=== PATIENT | male | born 1925 | race Caucasian/White ===

== ENCOUNTER → 2017-03-20 | Outpatient (CLI) | payer OTHER ==
[~2017-03-20] MED LIST: ACET-1256 PO; ADVIN10/60 INH; ALBUAER INH; BRIM0.2S OPB; CHOL1000 PO; CMD25 PO; DOXA2TAB PO; FURO20TA PO; PANT40TA PO; QUIN20TA30 PO; SIMV20TA5 PO; WARF2.5T8 PO; WARF5TAB90 PO
[2017-03-20 16:05] LABS: FERRITIN 376.4 ng/ml (8.0-388.0)
[2017-03-20 16:16] LABS: HEMATOCRIT 32.2 % (42-52); MEAN CELL VOLUME 96.1 fL (80-100); MEAN CORPUSCULAR HEMOGLOBIN 29.6 pg (25-34); MEAN CORPUSCULAR HGB CONC 30.7 g/dl (32-36); PLATELET COUNT 80 K/uL (130-400); PLT ESTIMATE DECREASED; RED BLOOD COUNT 3.35 M/uL (4.7-6.1); WHITE BLOOD COUNT 3.95 K/uL (4.8-10.8)
== END | disposition home or self-care (01) ==
LOC: C.LAB1850 14:25
PROVIDERS: ATTEND Internal Medicine Nephrology
DX: D64.9 Anemia, unspecified (principal)

== ENCOUNTER 2017-09-24 05:49 | Inpatient (IN) | payer OTHER ==
[~2017-09-24] VITALS: Ht 165.1 cm; Wt 73.0 kg
[~2017-09-24 05:49] MED LIST changes: -ADVIN10/60 INH; -WARF2.5T8 PO
[2017-09-24 10:28] VITALS: BP 144/77; PULSE 84; TEMP 37; O2SAT 96
[2017-09-24 10:40] VITALS: O2SAT 96; Ht 165.1 cm; Wt 73.0 kg
[2017-09-24] MEDS ORDERED: CONSULT PHARMACY STA (10:56)
[2017-09-24] MEDS ORDERED: ALUMINUM/MAGNESIUM/SIMETH (MAALOX MAX) 30 ML UDC PO PRN (11:00)
[2017-09-24] MEDS ORDERED: ALBUTEROL HFA 8 GM INHALER INH PRN (11:00)
[2017-09-24] MEDS ORDERED: MAGNESIUM HYDROXIDE SUSP 30 ML UDC PO PRN (11:00)
[2017-09-24] MEDS ORDERED: ACETAMINOPHEN 325 MG TAB PO PRN (11:00)
[2017-09-24] MEDS ORDERED: ONDANSETRON INJ 2 MG/ML 2 ML VIAL IV PRN (11:00)
[2017-09-24] MEDS ORDERED: POLYETHYLENE (MIRALAX) 17 GM PACK PO PRN (11:00)
[2017-09-24] MEDS ORDERED: ZOLPIDEM TARTRATE 5 MG TAB PO PRN (11:00)
[2017-09-24] MEDS ORDERED: WARF2.5T8 PO ×2 (11:08)
[2017-09-24] MEDS ORDERED: ADVIN10/60 INH ×2 (11:13)
--- NOTE | 2017-09-24 11:38 | History and Physical ---
History & Physical Date of Service Sep 24, 2017. History & Physical chf exac, cellulitis, [id number]
[2017-09-24] MEDS: PATIENT'S HEIGHT AND/OR WEIGHT NEEDED SCH ×2 (11:50→11:52)
[2017-09-24 11:51] LABS: PROTHROMBIN TIME (PATIENT) 31.2 SECONDS (9.0-12.0)
[2017-09-24] MEDS ORDERED: VANCOMYCIN CONSULT ACTIVE PRN (12:00)
[2017-09-24] MEDS ORDERED: VANCOMYCIN INJ 1,500 MG in SODIUM CHLORIDE 0.9% 500ML 500 ML IV ONE (12:00)
[2017-09-24 12:10] LABS: CKMB/CK RATIO 4.3 (0-3.0); MAGNESIUM 2.2 mg/dl (1.8-2.4); THYROID STIMULATING HORMONE 2.09 uIu/ml (0.300-4.500)
[2017-09-24 12:49] VITALS: BP 135/72; PULSE 86; TEMP 36.6; O2SAT 96
--- NOTE | 2017-09-24 12:53 | HISTORY & PHYSICAL EXAMINATION ---
DATE OF ADMISSION: 09/24/2017 This is a level 3 admission, 40 minutes. CHIEF COMPLAINT: Worsening dyspnea on exertion and right lower wound seeping ulcerative colitis. HISTORY OF PRESENT ILLNESS: The patient is an 89-year-old white male with a significant past medical history of DVT, GI bleeding, hypertension, aortic valve replacement, MRSA carrier, [place] filter placement, chronic kidney disease stage III, and CHF conditions, transferred from [facility] to this hospital because of the above chief complaint. The patient reported a history of CHF and adjusting Lasix at home mostly as 20 mg p.o. daily, but advised can get additional dose if weight gain. Feeling has worsening dyspnea on exertion, especially feeling more frequent dyspnea on exertion. He is still able to up and walk to mailbox and get mail, able to walk with dog, no obvious wheezing. Occasional cough with white or yellow sputum. Denied orthopnea. Denied wake up in the middle of the night because of gasping air, still able to sleep in 1 pillow. At the same time, the patient reports right lower extremity chronic wounds for years. He has been followed up with home health care of wound care. However, right anterior reaves has a dime-sized open wound that is seeping and drainage. Right lower extremity has obvious swelling, distended and tight associated with mild warmer than left side. Yesterday, per , bilateral lower extremities were more swelling than today. In the [place] [facility], Doppler ultrasound was done and has ruled out DVT. The patient has been taking Coumadin for a history of PE. He was seen by Dr. Cobb oncologist in this hospital yesterday fro low white blood cell count and anemia, and has bone marrow biopsy done. PT/INR was checked yesterday when seen by Dr. Cobb. When I interviewed with him, he was awake, alert, orientated, conversational, follows all commands and confirmed me the above information. Denied fever or chill. Denied wheezing. Denied chest pain or palpitation. Denied nausea, vomiting, abdominal pain, diarrhea or constipation. Denied dysuria, urgency and frequencies. There was no clubbing or cyanosis in the lower extremities. Denied facial droop, slurry speeches or local weakness. ALLERGIES: 1. AMINOGLYCOSIDE. 2. BACITRACIN. 3. ERYTHROMYCIN. 4. NEOMYCIN. 5. PENICILLIN. 6. POLYMYXIN B. 7. SULFA. 8. VERAPAMIL. PAST MEDICAL HISTORY: Include DVT, PE, [place] filter, GI bleeding, hypertension, CHF, aortic valve replacement with pig valve, positive MRSA carrier, bilateral knee replacement, hernia repair, CKD stage III, dyslipidemia, GERD, and BPH. SOCIAL HISTORY: Social alcohol drinking. History of smoking, quit in 2006. Denied illicit drug abuse. FAMILY HISTORY: Noncontributory. MEDICATIONS: Taking at home, which include Tylenol 500 mg p.o. q. 4 hours p.r.n. for the pain, albuterol inhaler as needed, Combigan 1 drop OPB, q. 2 days, vitamin D3 one tab p.o. q.a.m., Cardura 2 mg p.o. at bedtime, Advair 100/50 one puff b.i.d., Lasix 20 mg p.o. q.a.m., Protonix 40 mg p.o. q.a.m., quinapril 20 mg p.o. q. daily, Zocor 20 mg p.o. q.p.m., and warfarin 2.5 mg Friday and 5 mg 3 times per week. PHYSICAL EXAMINATION: VITAL SIGNS: Temperature is 37, pulse 84, respiratory rate 18, blood pressure 144/77, and pulse ox was 96% in room air. GENERAL: The patient is a white male, awake, alert and orientated, conversational, follows all commands, and pleasant. No acute distress. HEAD: Normocephalic. EYES: Pupils equal, round and respond to light. EARS: Normal. NOSE: Normal. NECK: Supple. Thyroid, no enlargement. Trachea midline. HEART: Regular rhythm. S1 and S2. LUNGS: Decreased breathing sounds. There were mild fine crackles in the base of right side. No wheezing or rhonchi. ABDOMEN: Soft and nontender. Bowel sound was positive. GENITOURINARY AND RECTAL: Deferred. EXTREMITIES: Bilateral CVA was nontender. Bilateral lower extremities: Left lower extremity 1+ edema. Right lower extremity 2+ edema. There was no clubbing and no cyanosis. NEUROLOGIC EVALUATION: Cranial nerve II through XII was intact. There were no local deficits. SKIN: In the left lower extremity, he has skin scratches because of itching. Right lower extremity has dime-sized chronic wounds and associated surrounding chronic pigmentation. The dime-sized open wound has some drainages, not obvious yellow. The whole right lower extremity is mild warmer than left side and swelling like I mentioned. LABORATORY STUDIES: Yesterday was done. WBC 3.3, hemoglobin 9.3, and platelets 95. PT/INR was 23/2.2 yesterday. Labs in [place] today, blood glucose 114, BUN 37, and creatinine 2.2. Total protein 6.3 and albumin 3.3. Calcium 8.9. Total bilirubin 0.8. Sodium 145, potassium 4.5, chloride 112, and bicarbonate 23. AST 25 and ALT 27. Magnesium 2.2. BNP 80,782. Troponin 0.036, which was in normal range in the outside hospital. PT/INR was 33/3.29. WBC 3, hemoglobin 8.8, and platelets 97. Right lower extremity venous Doppler studies was negative for DVT. EKG in the outside hospital shows atrial fibrillations with heart rate around 80. ASSESSMENT AND PLAN: This 89-year-old white male was transferred from [facility] with the conditions see below. 1. Congestive heart failure exacerbation with a history of aortic valve replacement with pig valve. 2. Right lower extremity cellulitis and local open wound. 3. History of chronic kidney disease, stage III. 4. History of deep venous thrombosis, [place] filter and pulmonary embolism on Coumadin. 5. Hypertension. 6. History of [place] filter placement. 7. History of benign prostatic hypertrophy. 8. History of gastroesophageal reflux disease. 9. Dyslipidemia. The plan will be CHF protocol, fluid restriction, I&O, daily weight, increase Lasix to 40 mg IV q. daily, check BUN and creatinine levels and electrolytes. The patient's cardiology is Dr. Paul and nephrology is Dr. Sorensen. We will request them to see. Continue TYRONE inhibitor and beta alie for now. For right lower extremity cellulitis and local open wound. The patient is a MRSA carrier. He got 1 dose Vanco in [facility]. We will continue vancomycin IV per pharmacy dose. Has sent local open wound culture and blood culture. We will follow up the wound culture results and blood culture results. By the way, I heard [place] and they sent the wound culture and blood culture as well. We can follow up of the results. The patient has DVT, PE. [place] filter. Today's INR in [place] was 3.29. I will hold the Coumadin today. Follow up INR tomorrow. History of atrial fibrillation, rate controlled. We will continue current medication. Chronic anemia. We will follow up H&H. The patient was recently seen by Dr. Cobb and had a marrow biopsy done. We need to follow up the results and consult Dr. Cobb if needed. Bilateral lower extremity itching and scratching. I will order hydrocortisone cream. Local open wound. We will have wound care consult. For the DVT prophylaxis, we will not order or heparin product because platelet level is low and he is thrombocytopenic currently. The patient is on Coumadin as well. Discussed with the patient about the code status. He is okay to CPR, but no intubation, but his living will is DNR. Discussed with the patient and and son at the bedside and answered all their questions. AKIL
[2017-09-24 12:57] LABS: MEAN CELL VOLUME 97.6 fL (80-100); MEAN CORPUSCULAR HEMOGLOBIN 30.2 pg (25-34); MEAN CORPUSCULAR HGB CONC 30.9 g/dl (32-36); MEAN PLATELET VOLUME 10.6 fL (7.4-10.4); PLATELET COUNT 114 K/uL (130-400); RED BLOOD COUNT 3.28 M/uL (4.7-6.1); WHITE BLOOD COUNT 3.46 K/uL (4.8-10.8)
[2017-09-24 12:59] LABS: BUN/CREATININE RATIO 16.3 (10-20); CALCIUM 9.5 mg/dl (8.5-10.1); CREATININE 2.04 mg/dl (0.60-1.40); POTASSIUM 4.3 mmol/L (3.5-5.1)
[2017-09-24] MEDS ORDERED: PNEUMOCOCCAL POLYSACCHARIDES 25 MCG/0.5 ML VIAL/SYR IM. ONE (13:00)
[2017-09-24] MEDS ORDERED: PNEUMOCOCCAL ADMINISTRATION CHARGE ONE (13:00)
--- NOTE | 2017-09-24 14:02 | DIAGNOSTIC IMAGING REPORT ---
CHEST 2 VIEWS ROUTINE CLINICAL HISTORY: CHF dyspnea COMPARISON STUDY: 07/03/2016 FINDINGS: Mild stable cardiomegaly. Median sternotomy. Dense calcification mitral annulus. Lungs are clear. Diaphragms smooth. IMPRESSION: No acute process. Mild stable cardiomegaly. The above report was generated using voice recognition software. It may contain grammatical, syntax or spelling errors. Electronically signed by: Luiz Medel M.D. 09/24/2017 2:00 PM Dictated Date/Time: 09/24/2017 1:59 PM
--- NOTE | 2017-09-24 14:13 | Pharmacy Progress Note ---
Pharmacy Antibiotic Consult Date of Service: Sep 24, 2017. Pharmacy Dosing Scope Pharmacy is consulted to initiate Vancomycin IV dosing therapy, order appropriate labs and adjust drug dose/frequency. Subjective The patient is a 89 year old male admitted on Sep 24, 2017 at 11:06. Objective Height (Feet): 5 Height (Inches): 5.00 Weight (Kilograms): 69.000 Lab Results (24hrs): Test 09/24/17 11:15 White Blood Count 3.46 K/uL (4.8-10.8) Red Blood Count 3.28 M/uL (4.7-6.1) Hemoglobin 9.9 g/dL (14.0-18.0) Hematocrit 32.0 % (42-52) Mean Corpuscular Volume 97.6 fL (80-100) Mean Corpuscular Hemoglobin 30.2 pg (25-34) Mean Corpuscular Hemoglobin Concent 30.9 g/dl (32-36) RDW Standard Deviation 58.5 fL (36.4-46.3) RDW Coefficient of Variation 16.4 % (11.5-14.5) Platelet Count 114 K/uL (130-400) Mean Platelet Volume 10.6 fL (7.4-10.4) Prothrombin Time 31.2 SECONDS (9.0-12.0) Prothromb Time International Ratio 3.0 (0.9-1.1) Sodium Level 139 mmol/L (136-145) Potassium Level 4.3 mmol/L (3.5-5.1) Chloride Level 108 mmol/L (98-107) Carbon Dioxide Level 27 mmol/L (21-32) Anion Gap 4.0 mmol/L (3-11) Blood Urea Nitrogen 33 mg/dl (7-18) Creatinine 2.04 mg/dl (0.60-1.40) Est Creatinine Clear Calc Drug Dose 21.4 ml/min Estimated GFR () 32.5 Estimated GFR (Non- 28.1 BUN/Creatinine Ratio 16.3 (10-20) Random Glucose 85 mg/dl (70-99) Calcium Level 9.5 mg/dl (8.5-10.1) Magnesium Level 2.2 mg/dl (1.8-2.4) Total Creatine Kinase 90 U/L (39-308) Creatine Kinase MB 3.9 ng/ml (0.5-3.6) Creatine Kinase MB Ratio 4.3 (0-3.0) Troponin I 0.043 ng/ml (0-0.045) Pro-B-Type Natriuretic Peptide 7646 pg/ml (0-1800) Thyroid Stimulating Hormone (TSH) 2.090 uIu/ml (0.300-4.500) Assessment & Plan Assessment Pt transferred from [facility] for worsening dyspnea on exertion and for seeping, open leg wound. Pt reports that the leg wound is chronic and that he has had it for years. He has a history of CKD stage III, DVT, CHF, GI bleed and is reportedly a MRSA carrier. Wound cultures pending. Vancomycin * Per Radha at [facility] pharmacy, pt received vanco 1.5 gm x 1 @ 0530 this morning prior being transferred to [place]. * A loading dose of vanco 1.5gm iv x 1 was ordered for this admission before this information was obtained. I spoke with nursing to stop the infusion of vancomycin. It is estimated that he received about 1/2 of the dose. * Due to a Scr of 2 and estimated CrCl of 21ml/min, he will be dosed per level at this time. * Goal trough level for cellulitis with possible MRSA involvement 15-20mcg/mL Plan Vancomycin * Pt received an estimated total dose of 2250mg of vancomycin today (~32mg/kg) * A random vanc level is ordered for tomorrow am with labs. Pharmacy will continue to follow and will adjust dose/frequency as necessary. Thank you
--- NOTE | 2017-09-24 14:31 | Nephrology Consultation ---
Nephrology Consultation Date & Providers Date of Consultation: Sep 24, 2017. Primary Care Provider: Naveed Kelsey M.D. Referring Provider: Reason for Consultation Evaluation and management for chronic kidney disease and volume overload. History of Present Illness Mr. Vann is a 89-year-old gentlemen with past medical history significant for stage 3 chronic kidney disease, hypertension, chronic atrial fibrillation CHF with diastolic dysfunction and prior history of aortic valve replacement admitted to the hospital with CHF exacerbation. Nephrology consult was requested to manage the volume status and diuretics. The medical records including labs and imaging are reviewed in detail during patient's visit. Patient's and son was at bedside during visit. Mr. Vann went to [facility] ER yesterday after he noticed worsening lower extremity edema and superficial skin ulceration in his right lower extremity. He was found to have significant volume overload, with CHF exacerbation and transferred to [facility] as a direct admit as there was no bed available. Labs and imaging from ER visit is not available to review at this point. Mr. Vann has stage 3 chronic kidney disease baseline creatinine has been variable from 1.7-2.3, EGFR around 35-40. He has low grade proteinuria and microscopic hematuria, previously,urine cytology was negative. Refused cystoscopy before. He has been on Lasix 20 milligram daily for chronic lower extremity edema with underlying diastolic dysfunction however reports that he has not been taking Lasix regularly and was taking only as needed. He was having progressive increase in lower extremity edema and yesterday he noticed skin break in right reaves prior to the visit to the emergency room. He also had a fall and hematoma in the same lower extremity several weeks ago, requiring blood transfusion thrombectomy. Has history of chronic atrial fibrillation has been on anticoagulation with warfarin. Has CHF with diastolic dysfunction, prior echo in February 2017 showed EF 60-65 % with grade 1 diastolic dysfunction. Has chronic anemia, previously evaluated by Oncology, had bone marrow biopsy done which was unremarkable according to the family, report not available. Had iron deficiency and received IV Venofer 1 gram recently. Hemoglobin continues to be below 10 He reports improvement in lower extremity edema compared to yesterday after he received IV Lasix. Has been having bouts of cough but denies any fever or chills. Denies any shortness of breath. Has been voiding normally. Denies any chest pain. Allergies Coded Allergies: Aminoglycosides (Verified Allergy, Unknown, SWELLING,REDNESS, 03/11/17) Bacitracin (Verified Allergy, Unknown, SWELLING,REDNESS, 03/11/17) Neomycin (Verified Allergy, Unknown, SWELLING,REDNESS, 03/11/17) Penicillins (Verified Allergy, Unknown, HIVES, 03/11/17) Polymyxin B (Verified Allergy, Unknown, SWELLING,REDNESS, 03/11/17) Erythromycin (Verified Adverse Reaction, Unknown, DRY MOUTH, 03/11/17) Sulfa Drugs (Verified Adverse Reaction, Unknown, "CRYSTALLIZED IN MY URINE ", 03/11/17) Verapamil (Verified Adverse Reaction, Unknown, DELUSIONS, HALLUCINATIONS, 03/11/17) Inpatient Medications Current Inpatient Medications Medications (Trade) Dose Ordered Sig/Juan Route Start Time Stop Time Status Last Admin Dose Admin Acetaminophen (Tylenol Tab) 650 mg Q4H PRN PO 09/24/17 11:00 10/24/17 10:59 Al Hydrox/Mg Hydrox/Simethicone (Maalox Max Susp) 15 ml Q4H PRN PO 09/24/17 11:00 10/24/17 10:59 Magnesium Hydroxide (Milk Of Magnesia Susp) 30 ml Q12H PRN PO 09/24/17 11:00 10/24/17 10:59 Zolpidem Tartrate (Ambien Tab) 5 mg HSZ PRN PO 09/24/17 11:00 10/24/17 10:59 Ondansetron HCl (Zofran Inj) 4 mg Q6H PRN IV 09/24/17 11:00 10/24/17 10:59 Polyethylene (Miralax Powder Packet) 17 gm DAILY PRN PO 09/24/17 11:00 10/24/17 10:59 Furosemide 40 mg/ Syringe 4 ml @ 4 mls/min DAILY@09 IV 09/25/17 09:00 10/25/17 08:59 Albuterol (Ventolin Hfa Inhaler) 2 puffs BID PRN INH 09/24/17 11:00 10/24/17 10:59 Cholecalciferol (Vitamin D Tab) 1,000 inter.unit QAM PO 09/25/17 09:00 10/25/17 08:59 Doxazosin Mesylate (Cardura Tab) 2 mg HS PO 09/24/17 21:00 10/24/17 20:59 Pantoprazole Sodium (Protonix Tab) 40 mg QAM PO 09/25/17 09:00 10/25/17 08:59 Simvastatin (Zocor Tab) 20 mg QPM PO 09/24/17 21:00 10/24/17 20:59 Warfarin Sodium (Coumadin Tab) 5 mg UD PO 09/24/17 11:00 10/24/17 10:59 UNV Miscellaneous Information (Order Awaiting Action) 1 ea QS N/A 09/24/17 16:00 10/24/17 15:59 Enalapril Maleate (Vasotec Tab) 20 mg DAILY PO 09/25/17 09:00 10/25/17 08:59 Vancomycin HCl (Consult) 1 ea UD PRN N/A 09/24/17 12:00 10/24/17 11:59 Vancomycin HCl 1500 mg/Sodium Chloride 530 ml @ 200 mls/hr ONE ONCE IV 09/24/17 12:00 09/24/17 14:38 09/24/17 12:20 200 MLS/HR Pneumococcal Polysaccharide Vaccine (Pneumovax-23 Inj) 25 mcg ONCE ONCE IM. 09/24/17 12:30 09/24/17 12:31 UNV Social History Smoking Status: Former Smoker Marital Status: Housing Status: lives with family Occupation: retired Review of Systems A complete review of systems was performed. Pertinent positives are noted above. All other systems are negative. Physical Exam Date Time Temp Pulse Resp B/P (MAP) Pulse Ox O2 Delivery O2 Flow Rate FiO2 09/24/17 10:40 96 Room Air 09/24/17 10:28 37.0 84 18 144/77 (99) 96 Room Air GENERAL: Elderly male AAA x 3, pleasant, not in any distress. HEENT: Atraumatic, normocephalic. NECK: Supple, no JVD, no carotid bruit appreciated. ENT: No sinus tenderness MOUTH and THROAT: Moist oral mucosa, no oral ulcer or pharyngeal erythema RESPIRATORY: Has occasional wheezes and bilateral crackles CARDIOVASCULAR: S1, S2 normal, rhythm irregular. ABDOMEN: Soft, nontender, positive bowel sound. MUSCULOSKELETAL: No CVA tenderness. No joint swelling, erythema or tenderness. Normal range of motion. SKIN: No skin rash EXTREMITY: 1+ bilateral lower extremity edema, right lower extremity with superficial ulcer, in dressing NEURO: No gross focal neurological deficit, speech fluent. PSYCHIATRY: Normal mood and judgment Laboratory Results Last 24 Hours Test 09/24/17 11:15 09/24/17 12:18 Prothrombin Time 31.2 SECONDS Prothromb Time International Ratio 3.0 Magnesium Level 2.2 mg/dl Total Creatine Kinase 90 U/L Creatine Kinase MB 3.9 ng/ml Creatine Kinase MB Ratio 4.3 Troponin I 0.043 ng/ml Pro-B-Type Natriuretic Peptide 7646 pg/ml Thyroid Stimulating Hormone (TSH) 2.090 uIu/ml Impression 89-year-old gentlemen with history chronic atrial fibrillation, CHF with diastolic dysfunction, hypertension, stage 3 chronic kidney disease admitted with CHF exacerbation. 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 Has low grade proteinuria and microscopic hematuria. Has been on Lasix 20 milligram at home however has been taking only as needed. Started on IV Lasix with improvement in lower extremity edema however continues to be volume overloaded. Has history of anemia, prior evaluation by Hematology with bone marrow was unremarkable. Recent IV Venofer IV. Hemoglobin has been staying below 9. Recommendations --suggest starting on Lasix 40 IV twice a day as patient still significantly volume overloaded. Aim for net negative 0.5 to 1 L/d --will need close monitoring of renal function, check magnesium and phosphate every 48 hours considering being on high dose diuretics --will check CBC and if hemoglobin continues to be low will start on Epogen --continue on low-salt diet --continue on home dose of ARB Thank you for allowing me to participate in your patient's care. It was a pleasure to see Mr. Vann
[2017-09-24] MEDS ORDERED: EPOETIN ALFA 10,000 UNITS/ML VIAL SQ ONE (14:45)
[2017-09-24] MEDS: COMBIGAN: ORDER AWAITING ACTION SCH ×2 (15:36→23:10)
[2017-09-24 15:48] VITALS: BP 135/66; PULSE 80; TEMP 37; O2SAT 94
[2017-09-24 19:58] VITALS: BP 153/67; PULSE 81; TEMP 37; O2SAT 95
[2017-09-24] MEDS: DOXAZosin MESYLATE TAB 2 MG TAB PO SCH (20:09)
[2017-09-24] MEDS: SIMVASTATIN 20 MG TAB PO SCH (20:09)
[2017-09-24] MEDS: HYDROCORTISONE 1% CR 30 GM TUBE EXT SCH (20:09)
[2017-09-24] MEDS ORDERED: WARFARIN SOD 2.5 MG TAB PO SCH (21:00)
--- NOTE | 2017-09-24 21:25 | CARDIOLOGY CONSULTATION ---
DATE OF CONSULTATION: 09/24/2017 CONSULTATION REQUESTED BY: Dr. Moya. REASON FOR CONSULTATION: Heart failure. HISTORY OF PRESENT ILLNESS: Mr. Vann is an 89-year-old man with a complex past medical history including prior severe aortic stenosis, status post bioprosthetic aortic valve replacement in 2009, known small vessel coronary artery disease, permanent atrial fibrillation, on anticoagulation, prior VTE, hypertension, prior GI bleed and pancytopenia, who was transferred from [facility] in the setting of worsening lower extremity edema and concern for cellulitis. The patient is well known to me from the outpatient setting. I last saw him 1 week ago. At that time, he was endorsing longstanding dyspnea on exertion which was thought secondary to his persistent pancytopenia, being evaluated by Dr. Cobb. He underwent a bone marrow biopsy yesterday, which per report was unremarkable. The patient states that he was in his usual state of health up until 2 days ago when he noted increased swelling in his lower extremities as well as weeping from a chronic wound on his right lower extremity. Denied significant increased redness, fevers, chills or drainage. Due to symptoms, he presented to [facility], was thought to be volume overloaded, started on IV diuretics as well as IV antibiotics and transferred to [facility] due to his specialist care being here. Since diuresis, he states that his lower extremity swelling has improved, dyspnea on exertion is still at baseline. PAST MEDICAL HISTORY: 1. Status post bioprosthetic aortic valve replacement in 2009. 2. Coronary artery disease with prior disease in his mid circumflex and ostial first diagonal on preoperative heart catheterization. 3. Permanent atrial fibrillation. 4. Prior DVT/PE with [place] filter previously placed. 5. Hypertension. 6. Hyperlipidemia. 7. Prior GI bleed with gastric ulcer. 8. Obstructive sleep apnea, on CPAP. 9. Myelodysplastic syndrome/pancytopenia. FAMILY HISTORY: Noncontributory due to the patient's age and comorbidities. SOCIAL HISTORY: He is . He is a retired civil engineering project manager. Occasional social drinker. Denies any tobacco. HOME MEDICATIONS: Include Advair Diskus, allopurinol, diltiazem, doxazosin, furosemide 20 mg daily, Protonix, Proventil, simvastatin 20 and Coumadin. ALLERGIES: AMINOGLYCOSIDES, BACITRACIN, ERYTHROMYCIN, NEOMYCIN, PENICILLINS, POLYMYXIN B, SULFA DRUGS AND VERAPAMIL. REVIEW OF SYSTEMS: Ten-point review of systems completed and otherwise negative unless stated in HPI. PHYSICAL EXAMINATION: VITAL SIGNS: Temperature 36.6, pulse 86, blood pressure 135/72, satting 96% on room air. GENERAL: The patient appears comfortable, mildly dyspneic with extended conversation. HEENT: Sclerae anicteric. Oropharynx is clear. NECK: Supple. He has normal carotid upstrokes. His JVP is slightly elevated at approximately 8-9. LUNGS: He has few scant crackles, left greater than right, with decreased breath sounds at the right base. CARDIAC: He is irregularly irregular but with crisp bioprosthetic aortic valve closure and no other appreciable rubs or gallops. ABDOMEN: Soft, nontender, nondistended, with positive bowel sounds. EXTREMITIES: Warm. He has intact distal pulses including 2+ radial pulses and 2+ DP pulses bilaterally. He has mild distal hyperpigmentation with trace to 1+ lower extremity edema to his mid reaves bilaterally. He has a chronic healed wound to the right anterior/medial aspect of his reaves. There are no active ulcerations or drainage and no significant erythema. DATA: Sodium 139, potassium 4.3, BUN 33, creatinine of 2.0. His ProBNP was elevated at 7646. Initial troponin was negative at 0.43. Hemoglobin stable at 9.9, platelets of 114. Chest x-ray with no acute cardiopulmonary process. Telemetry reviewed, rate controlled atrial fibrillation. IMPRESSION AND PLAN: 1. Acute diastolic heart failure. 2. Chronic kidney disease, stage III-IV. 3. Pancytopenia/myelodysplastic syndrome, stable. 4. Permanent atrial fibrillation, rate controlled. 5. History of bioprosthetic aortic valve replacement. 6. Known coronary artery disease, small vessel disease. 7. Suspected cellulitis. Mr. Vann is here with acute worsening of lower extremity peripheral edema with some lower extremity oozing/weeping and concern for cellulitis. He has been started on IV diuretics and has mild residual pulmonary and peripheral congestion. No other clear triggers for worsening of acute diastolic heart failure, although the patient has not been taking his prior p.o. Lasix in the setting of not liking more frequent urination. Going forward, I agree with continued IV diuresis and will defer diuretic regimen to Dr. Echols in the setting of his chronic kidney disease. Continue current TYRONE. The patient's heart rate with permanent atrial fibrillation is well controlled and agree with holding prior home diltiazem. Otherwise, continue home statin and continue home Coumadin. We will continue to follow while in hospital. Thank you for consultation. AKIL
[2017-09-24] MEDS: FUROSEMIDE INJ 40 MG in SYRINGE 0 ML IV SCH (22:08)
[2017-09-24 23:47] VITALS: BP 129/65; PULSE 89; TEMP 37.6; O2SAT 97
[2017-09-25] VITALS (9 sets, daily range): BP systolic 122–179; BP diastolic 65–88; PULSE 72–97; TEMP 36.4–37.1; O2SAT 94–96
[2017-09-25] MEDS: COMBIGAN: ORDER AWAITING ACTION SCH ×2 (08:00→16:38)
[2017-09-25 08:35] LABS: INR 2.5 (0.9-1.1); PROTHROMBIN TIME (PATIENT) 25.5 SECONDS (9.0-12.0)
[2017-09-25 08:58] LABS: BUN/CREATININE RATIO 17.5 (10-20); CALCIUM 9.4 mg/dl (8.5-10.1); CREATININE 2.34 mg/dl (0.60-1.40); MAGNESIUM 2.2 mg/dl (1.8-2.4); POTASSIUM 4.6 mmol/L (3.5-5.1)
[2017-09-25] MEDS ORDERED: FUROSEMIDE INJ 40 MG in SYRINGE 0 ML IV SCH (09:00)
[2017-09-25 09:03] LABS: CHOLESTEROL/HDL RATIO 1.9
[2017-09-25] MEDS: ENALAPRIL MALEATE 10 MG TAB PO SCH (09:19)
[2017-09-25] MEDS: CHOLECALCIFEROL 1000 INTER.UNIT TAB PO SCH (09:19)
[2017-09-25] MEDS: PANTOprazole SOD 40 MG TAB PO SCH (09:20)
[2017-09-25] MEDS: HYDROCORTISONE 1% CR 30 GM TUBE EXT SCH ×2 (09:20→19:42)
--- NOTE | 2017-09-25 09:25 | Pharmacy Progress Note ---
Pharmacy Abx Dose Short Note Date of Service Sep 25, 2017. Assessment & Plan Assessment 89 year old male receiving vancomycin for treatment of cellulitis. Preliminary wound culture growing staph aureus. The patient's random level this morning after ~ 2250 was 14.4, however creatine has significantly bumped this morning. Therefore I will give a dose now but schedule conservatively, monitoring for changes in renal function and clinical status closely. Day # 2 of antimicrobial therapy. Plan Vancomycin * Random level of 14.4 mcg/mL is therapeutic * Change to 1250 mg IV every 48 hours * Goal trough level : 10 to 15 mcg/mL * Trough or random level ordered as clinically indicated Pharmacy will continue to follow and will adjust dose/frequency as necessary. Thank you.
[2017-09-25] MEDS: FUROSEMIDE INJ 40 MG in SYRINGE 0 ML IV SCH (09:29)
[2017-09-25] MEDS ORDERED: VANCOMYCIN INJ 1,250 MG in SODIUM CHLORIDE 0.9% 250ML 250 ML IV SCH (09:30)
--- NOTE | 2017-09-25 10:28 | Nephrology Progress Note ---
Nephrology Progress Note Date of Service Sep 25, 2017. Chief Complaint Evaluation and management for chronic kidney disease and volume overload. Subjective Mr. Vann was seen and examined in his room this am. Feels tired as he could not sleep at night. Denies SOB, CP. Cr slightly worsened to 2.3. BP stable, net negative, volume status improved significantly. Review of Systems A complete review of systems was performed. Pertinent positives are noted above. All other systems are negative. Vital Signs Last 8 Hrs Date Time Temp Pulse Resp B/P (MAP) Pulse Ox O2 Delivery O2 Flow Rate FiO2 09/25/17 08:19 36.5 85 18 164/65 (98) 94 Room Air 09/25/17 08:00 94 Room Air 09/25/17 04:46 36.9 83 18 139/76 (97) 96 Room Air 09/25/17 04:00 Room Air Last Recorded Weight Weight (Kilograms): 73.600 Physical Exam GENERAL: elderly male, AAA x 3, pleasant, healthy-appearing, not in any distress. NECK: Supple, no JVD. RESPIRATORY: Normal breathing efforts, no accessory muscle use, clear to auscultation bilaterally, no wheezes or rales. CARDIOVASCULAR: S1, S2 normal, rate rhythm regular. EXTREMITY: trace b/l lower extremity edema, dressing over rt reaves ulcer NEURO: speech fluent. PSYCHIATRY: Normal mood and judgment Social History Smoking Status: Former smoker Marital Status: Housing Status: lives with family Occupation: retired Laboratory Results Past 24 Hours 09/24/17 11:15 09/24/17 11:15 09/25/17 08:10 Test 09/24/17 11:15 09/25/17 08:10 Red Blood Count 3.28 M/uL (4.7-6.1) Mean Corpuscular Volume 97.6 fL (80-100) Mean Corpuscular Hemoglobin 30.2 pg (25-34) Mean Corpuscular Hemoglobin Concent 30.9 g/dl (32-36) RDW Standard Deviation 58.5 fL (36.4-46.3) RDW Coefficient of Variation 16.4 % (11.5-14.5) Mean Platelet Volume 10.6 fL (7.4-10.4) Prothrombin Time 31.2 SECONDS (9.0-12.0) 25.5 SECONDS (9.0-12.0) Prothromb Time International Ratio 3.0 (0.9-1.1) 2.5 (0.9-1.1) Anion Gap 4.0 mmol/L (3-11) 6.0 mmol/L (3-11) Est Creatinine Clear Calc Drug Dose 21.4 ml/min 18.6 ml/min Estimated GFR () 32.5 27.5 Estimated GFR (Non- 28.1 23.8 BUN/Creatinine Ratio 16.3 (10-20) 17.5 (10-20) Calcium Level 9.5 mg/dl (8.5-10.1) 9.4 mg/dl (8.5-10.1) Magnesium Level 2.2 mg/dl (1.8-2.4) 2.2 mg/dl (1.8-2.4) Total Creatine Kinase 90 U/L (39-308) Creatine Kinase MB 3.9 ng/ml (0.5-3.6) Creatine Kinase MB Ratio 4.3 (0-3.0) Troponin I 0.043 ng/ml (0-0.045) Pro-B-Type Natriuretic Peptide 7646 pg/ml (0-1800) 92660 pg/ml (0-1800) Thyroid Stimulating Hormone (TSH) 2.090 uIu/ml (0.300-4.500) Triglycerides Level 52 mg/dl (0-150) Cholesterol Level 92 mg/dl (0-200) HDL Cholesterol 49 mg/dl LDL Cholesterol, Calculated 33 mg/dl VLDL Cholesterol, Calculated 10 mg/dl Cholesterol/HDL Ratio 1.9 Random Vancomycin Level 14.4 mcg/ml Allergies Coded Allergies: Aminoglycosides (Verified Allergy, Unknown, SWELLING,REDNESS, 03/11/17) Bacitracin (Verified Allergy, Unknown, SWELLING,REDNESS, 03/11/17) Neomycin (Verified Allergy, Unknown, SWELLING,REDNESS, 03/11/17) Penicillins (Verified Allergy, Unknown, HIVES, 03/11/17) Polymyxin B (Verified Allergy, Unknown, SWELLING,REDNESS, 03/11/17) Erythromycin (Verified Adverse Reaction, Unknown, DRY MOUTH, 03/11/17) Sulfa Drugs (Verified Adverse Reaction, Unknown, "CRYSTALLIZED IN MY URINE ", 03/11/17) Verapamil (Verified Adverse Reaction, Unknown, DELUSIONS, HALLUCINATIONS, 03/11/17) Medications Current Inpatient Medications Medications (Trade) Dose Ordered Sig/Juan Route Start Time Stop Time Status Last Admin Dose Admin Acetaminophen (Tylenol Tab) 650 mg Q4H PRN PO 09/24/17 11:00 10/24/17 10:59 Al Hydrox/Mg Hydrox/Simethicone (Maalox Max Susp) 15 ml Q4H PRN PO 09/24/17 11:00 10/24/17 10:59 Magnesium Hydroxide (Milk Of Magnesia Susp) 30 ml Q12H PRN PO 09/24/17 11:00 10/24/17 10:59 Zolpidem Tartrate (Ambien Tab) 5 mg HSZ PRN PO 09/24/17 11:00 10/24/17 10:59 Ondansetron HCl (Zofran Inj) 4 mg Q6H PRN IV 09/24/17 11:00 10/24/17 10:59 Polyethylene (Miralax Powder Packet) 17 gm DAILY PRN PO 09/24/17 11:00 10/24/17 10:59 Albuterol (Ventolin Hfa Inhaler) 2 puffs BID PRN INH 09/24/17 11:00 10/24/17 10:59 Cholecalciferol (Vitamin D Tab) 1,000 inter.unit QAM PO 09/25/17 09:00 10/25/17 08:59 09/25/17 09:19 1,000 INTER.UNIT Doxazosin Mesylate (Cardura Tab) 2 mg HS PO 09/24/17 21:00 10/24/17 20:59 09/24/17 20:09 2 MG Pantoprazole Sodium (Protonix Tab) 40 mg QAM PO 09/25/17 09:00 10/25/17 08:59 09/25/17 09:20 40 MG Simvastatin (Zocor Tab) 20 mg QPM PO 09/24/17 21:00 10/24/17 20:59 09/24/17 20:09 20 MG Warfarin Sodium (Coumadin Tab) 5 mg WeFr@1600 PO 09/26/17 16:00 10/26/17 15:59 Miscellaneous Information (Order Awaiting Action) 1 ea QS N/A 09/24/17 16:00 1/5/18 15:59 Enalapril Maleate (Vasotec Tab) 20 mg DAILY PO 09/25/17 09:00 10/25/17 08:59 09/25/17 09:19 20 MG Vancomycin HCl (Consult) 1 ea UD PRN N/A 09/24/17 12:00 10/24/17 11:59 Warfarin Sodium (Coumadin Tab) 2.5 mg Mo@1600 PO 09/29/17 16:00 10/29/17 15:59 Hydrocortisone (Hydrocortisone 1% Crm) 1 appln Q12 EXT 09/24/17 21:00 10/24/17 20:59 09/25/17 09:20 1 APPLN Furosemide 40 mg/ Syringe 4 ml @ 4 mls/min BID@0900,1700 IV 09/24/17 22:00 10/24/17 21:59 09/25/17 09:29 4 MLS/MIN Vancomycin HCl 1250 mg/Sodium Chloride 275 ml @ 125 mls/hr Q48H IV 09/25/17 09:30 10/04/17 09:29 Impression 89-year-old gentlemen with history chronic atrial fibrillation, CHF with diastolic dysfunction, hypertension, stage 3 chronic kidney disease admitted with CHF exacerbation. 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 Has low grade proteinuria and microscopic hematuria. Has been on Lasix 20 milligram at home however has been taking only as needed. Started on IV Lasix with improvement in lower extremity edema however continues to be volume overloaded. Has history of anemia, prior evaluation by Hematology with bone marrow was unremarkable. Recent IV Venofer IV. Hemoglobin has been staying below 9. Recommendations --change to Lasix 40 IV daily as volume status improved , net negative 0.6 L/d , if continue sto be negative, will consider switching to po soon. --will need close monitoring of renal function, check magnesium and phosphate every 48 hours considering being on high dose diuretics -- Epogen given on 09/24/17 --continue on low-salt diet --continue on home dose of ARB Will follow
--- NOTE | 2017-09-25 12:20 | Hospitalist Progress Note ---
Hospitalist Progress Note Date of Service Sep 25, 2017. (Dominique Brown ., HERNAN) Subjective Pt evaluation today including: conversation w/ patient, physical exam, lab review, review of studies, review of inpatient medication list Voiding: no voiding problems Patient sitting up in bed. Eating and drinking OK. Wound started to drain on Friday or Friday. Currently in clean bandage. Patient denies any fever, chills, sweats, lightheadedness, dizziness, vision changes, CP, palpitations, edema, SOB, wheezing, cough, abdominal pain, nausea, vomiting, diarrhea, urinary symptoms, melena, numbness/tingling, weakness, muscle/joint pain, anxiety/depression, active bleeding. (Dominique Brown ., SANAC) Medications Current Inpatient Medications Medications (Trade) Dose Ordered Sig/Juan Route Start Time Stop Time Status Last Admin Dose Admin Acetaminophen (Tylenol Tab) 650 mg Q4H PRN PO 09/24/17 11:00 10/24/17 10:59 Al Hydrox/Mg Hydrox/Simethicone (Maalox Max Susp) 15 ml Q4H PRN PO 09/24/17 11:00 10/24/17 10:59 Magnesium Hydroxide (Milk Of Magnesia Susp) 30 ml Q12H PRN PO 09/24/17 11:00 10/24/17 10:59 Zolpidem Tartrate (Ambien Tab) 5 mg HSZ PRN PO 09/24/17 11:00 10/24/17 10:59 Ondansetron HCl (Zofran Inj) 4 mg Q6H PRN IV 09/24/17 11:00 10/24/17 10:59 Polyethylene (Miralax Powder Packet) 17 gm DAILY PRN PO 09/24/17 11:00 10/24/17 10:59 Albuterol (Ventolin Hfa Inhaler) 2 puffs BID PRN INH 09/24/17 11:00 10/24/17 10:59 Cholecalciferol (Vitamin D Tab) 1,000 inter.unit QAM PO 09/25/17 09:00 10/25/17 08:59 09/25/17 09:19 1,000 INTER.UNIT Doxazosin Mesylate (Cardura Tab) 2 mg HS PO 09/24/17 21:00 10/24/17 20:59 09/24/17 20:09 2 MG Pantoprazole Sodium (Protonix Tab) 40 mg QAM PO 09/25/17 09:00 10/25/17 08:59 09/25/17 09:20 40 MG Simvastatin (Zocor Tab) 20 mg QPM PO 09/24/17 21:00 10/24/17 20:59 09/24/17 20:09 20 MG Warfarin Sodium (Coumadin Tab) 5 mg WeFr@1600 PO 09/26/17 16:00 10/26/17 15:59 Miscellaneous Information (Order Awaiting Action) 1 ea QS N/A 09/24/17 16:00 10/24/17 15:59 Enalapril Maleate (Vasotec Tab) 20 mg DAILY PO 09/25/17 09:00 10/25/17 08:59 09/25/17 09:19 20 MG Vancomycin HCl (Consult) 1 ea UD PRN N/A 09/24/17 12:00 10/24/17 11:59 Warfarin Sodium (Coumadin Tab) 2.5 mg Mo@1600 PO 09/29/17 16:00 10/29/17 15:59 Hydrocortisone (Hydrocortisone 1% Crm) 1 appln Q12 EXT 09/24/17 21:00 10/24/17 20:59 09/25/17 09:20 1 APPLN Vancomycin HCl 1250 mg/Sodium Chloride 275 ml @ 125 mls/hr Q48H IV 09/25/17 09:30 10/04/17 09:29 09/25/17 10:36 125 MLS/HR Furosemide 40 mg/ Syringe 4 ml @ 4 mls/min DAILY IV 09/26/17 09:00 10/24/17 21:59 UNV (Dominique Brown, HERNAN) Objective Vital Signs Date Time Temp Pulse Resp B/P (MAP) Pulse Ox O2 Delivery O2 Flow Rate FiO2 09/25/17 08:19 36.5 85 18 164/65 (98) 94 Room Air 09/25/17 08:00 94 Room Air 09/25/17 04:46 36.9 83 18 139/76 (97) 96 Room Air 09/25/17 04:00 Room Air 09/25/17 00:00 Room Air 09/24/17 23:47 37.6 89 18 129/65 (86) 97 CPAP 09/24/17 20:00 Room Air 09/24/17 19:58 37.0 81 18 153/67 (95) 95 Room Air 09/24/17 16:00 Room Air 09/24/17 15:48 37.0 80 18 135/66 (89) 94 Room Air 09/24/17 12:49 36.6 86 18 135/72 (93) 96 Room Air (Dominique Brown PA-C) Physical Exam General Appearance: no apparent distress Eyes: normal inspection, PERRL ENT: hearing grossly normal Neck: supple Respiratory/Chest: lungs clear, no respiratory distress, no accessory muscle use Cardiovascular: + irregularly irregular (rate controlled ) Abdomen: normal bowel sounds, non tender, soft Extremities: no calf tenderness, + swelling (trace to +1 pitting edema bilateral lower extremities ), + pertinent finding (RLE wound- dressing C/D/I ) Neurologic/Psychiatric: alert, normal mood/affect, oriented x 3 Skin: normal color, warm/dry, no rash (Dominique Brown PA-C) Laboratory Results Last 24 Hours Test 09/25/17 08:10 Prothrombin Time 25.5 SECONDS Prothromb Time International Ratio 2.5 Sodium Level 141 mmol/L Potassium Level 4.6 mmol/L Chloride Level 106 mmol/L Carbon Dioxide Level 29 mmol/L Anion Gap 6.0 mmol/L Blood Urea Nitrogen 41 mg/dl Creatinine 2.34 mg/dl Est Creatinine Clear Calc Drug Dose 18.6 ml/min Estimated GFR () 27.5 Estimated GFR (Non- 23.8 BUN/Creatinine Ratio 17.5 Random Glucose 114 mg/dl Calcium Level 9.4 mg/dl Magnesium Level 2.2 mg/dl Pro-B-Type Natriuretic Peptide 17906 pg/ml Triglycerides Level 52 mg/dl Cholesterol Level 92 mg/dl HDL Cholesterol 49 mg/dl LDL Cholesterol, Calculated 33 mg/dl VLDL Cholesterol, Calculated 10 mg/dl Cholesterol/HDL Ratio 1.9 Random Vancomycin Level 14.4 mcg/ml (Dominique Brown PA-C) Assessment and Plan The patient is an 89-year-old white male with a significant past medical history of DVT, GI bleeding, hypertension, aortic valve replacement, MRSA carrier, [place] filter placement, chronic kidney disease stage III, and CHF conditions, transferred from [facility] Room to this hospital because RLE wound and MC. Acute diastolic CHF exacerbation: - Admitted to tele for cardiac monitoring - O2 protocol, wean as tolerated - IV Lasix 40 mg daily; hold PO 20 mg Lasix daily - Monitor I&Os and daily weights - Cardiology following, appreciate recommendations CAD, s/p aortic valve replacement, permanent a.fib, HTN- follows w/ Dr. Paul: - Continue Vasotec 20 mg daily, Cardura 2 mg HS, Zocor 20 mg HS - Continue Coumadin- adjust dosage PRN for INR goal of 2-3 RLE wound- growing Staph: - IV Vancomycin pending final wound culture/sensitives - Wound care consulted CKD stage, III- baseline Cr 1.7-2.3: - Nephrology following, appreciate recommendations -- Epogen given on 09/24/17 -- Continue on low-salt diet -- Continue on home dose of ARB h/o VTE: Continue Coumadin Chronic anemia, pancytopenia: - Follow CBC - Continue outpatient workup with Dr. Cobb GI prophylaxis: Protonix 40 mg daily DVT prophylaxis: Coumadin Code Status: FULL, NO MECH VENTILATION Dispo: From home- lives w/ - PT/OT and CM consulted (Dominique Brown, PA-C) I agree with PA assessment and plan and have seen and examined pt myself Resting comfortably in bed VSS Labs reviewed Noted to be in acute on chronic diastolic CHF exab Cont IV diuresis Cont home ARB dose Agree with nephro recs at this time CAD stable Cont to monitor (Christo Urbano, D.O.)
--- NOTE | 2017-09-25 12:30 | Cardiology Follow-Up ---
Subjective Subjective Date of Service: Sep 25, 2017. Pt evaluation today including: conversation w/ patient, physical exam, chart review, lab review, review of studies, review of inpatient medication list Additional Details: Feeling well. Denies chest pain. Breathing near baseline. Leg swelling improved. Negative 560 yesterday, 650 thus far today Review of Systems Constitutional: No fever Respiratory: + shortness of breath, No cough, No sputum Cardiac: No chest pain Abdomen: No pain, No nausea Heme: No abnormal bleeding/bruising Skin: + problem reported (RLE wound) Objective Vital Signs Last Vital Signs Documentation Date Time Temp Pulse Resp B/P (MAP) Pulse Ox O2 Delivery O2 Flow Rate FiO2 09/25/17 12:01 37.1 72 18 122/70 (87) 95 Room Air Physical Exam: General Appearance: no apparent distress ENT: hearing grossly normal Neck: no JVD (JVP improved ~6-7) Respiratory/Chest: no respiratory distress, no accessory muscle use, + decreased breath sounds (minimally decreased at right base), + crackles (few at left base) Cardiovascular: + irregularly irregular Abdomen: non tender, soft Extremities: + pertinent finding (1+ edema to mid reaves bilaterally) Neurologic/Psychiatric: alert, normal mood/affect, oriented x 3 Skin: + pertinent finding (prior ulcer dressed, no surrounding erythema) Assessment and Plan 1. Acute diastolic heart failure. 2. Chronic kidney disease, stage III-IV. 3. Pancytopenia/myelodysplastic syndrome, stable. 4. Permanent atrial fibrillation, rate controlled. 5. History of bioprosthetic aortic valve replacement. 6. Known coronary artery disease, small vessel disease. 7. Suspected cellulitis. Well perfused, with minimal congestion on exam. LE edema, JVD improved on exam today. BUN/Cr trending up today after 3 total doses IV lasix, - 1L -- Appears to be approaching euvolemia -- continue diuretics, TYRONE per Dr. Echols -- Rate controlled off AV macario agents -- Resume warfarin today. will continue to follow. Medications: Current Inpatient Medications Medications (Trade) Dose Ordered Sig/Juan Route Start Time Stop Time Status Last Admin Dose Admin Acetaminophen (Tylenol Tab) 650 mg Q4H PRN PO 09/24/17 11:00 10/24/17 10:59 Al Hydrox/Mg Hydrox/Simethicone (Maalox Max Susp) 15 ml Q4H PRN PO 09/24/17 11:00 10/24/17 10:59 Magnesium Hydroxide (Milk Of Magnesia Susp) 30 ml Q12H PRN PO 09/24/17 11:00 10/24/17 10:59 Zolpidem Tartrate (Ambien Tab) 5 mg HSZ PRN PO 09/24/17 11:00 10/24/17 10:59 Ondansetron HCl (Zofran Inj) 4 mg Q6H PRN IV 09/24/17 11:00 10/24/17 10:59 Polyethylene (Miralax Powder Packet) 17 gm DAILY PRN PO 09/24/17 11:00 10/24/17 10:59 Albuterol (Ventolin Hfa Inhaler) 2 puffs BID PRN INH 09/24/17 11:00 10/24/17 10:59 Cholecalciferol (Vitamin D Tab) 1,000 inter.unit QAM PO 09/25/17 09:00 10/25/17 08:59 09/25/17 09:19 1,000 INTER.UNIT Doxazosin Mesylate (Cardura Tab) 2 mg HS PO 09/24/17 21:00 10/24/17 20:59 09/24/17 20:09 2 MG Pantoprazole Sodium (Protonix Tab) 40 mg QAM PO 09/25/17 09:00 10/25/17 08:59 09/25/17 09:20 40 MG Simvastatin (Zocor Tab) 20 mg QPM PO 09/24/17 21:00 10/24/17 20:59 09/24/17 20:09 20 MG Warfarin Sodium (Coumadin Tab) 5 mg WeFr@1600 PO 09/26/17 16:00 10/26/17 15:59 Miscellaneous Information (Order Awaiting Action) 1 ea QS N/A 09/24/17 16:00 10/24/17 15:59 Enalapril Maleate (Vasotec Tab) 20 mg DAILY PO 09/25/17 09:00 10/25/17 08:59 09/25/17 09:19 20 MG Vancomycin HCl (Consult) 1 ea UD PRN N/A 09/24/17 12:00 10/24/17 11:59 Warfarin Sodium (Coumadin Tab) 2.5 mg Mo@1600 PO 09/29/17 16:00 10/29/17 15:59 Hydrocortisone (Hydrocortisone 1% Crm) 1 appln Q12 EXT 09/24/17 21:00 10/24/17 20:59 09/25/17 09:20 1 APPLN Vancomycin HCl 1250 mg/Sodium Chloride 275 ml @ 125 mls/hr Q48H IV 09/25/17 09:30 10/04/17 09:29 09/25/17 10:36 125 MLS/HR Furosemide 40 mg/ Syringe 4 ml @ 4 mls/min DAILY IV 09/26/17 09:00 10/24/17 21:59 Lab Results: 09/25/17 08:10 Test 09/25/17 08:10 Prothrombin Time 25.5 SECONDS (9.0-12.0) Prothromb Time International Ratio 2.5 (0.9-1.1) Anion Gap 6.0 mmol/L (3-11) Est Creatinine Clear Calc Drug Dose 18.6 ml/min Estimated GFR () 27.5 Estimated GFR (Non- 23.8 BUN/Creatinine Ratio 17.5 (10-20) Calcium Level 9.4 mg/dl (8.5-10.1) Magnesium Level 2.2 mg/dl (1.8-2.4) Pro-B-Type Natriuretic Peptide 35979 pg/ml (0-1800) Triglycerides Level 52 mg/dl (0-150) Cholesterol Level 92 mg/dl (0-200) HDL Cholesterol 49 mg/dl LDL Cholesterol, Calculated 33 mg/dl VLDL Cholesterol, Calculated 10 mg/dl Cholesterol/HDL Ratio 1.9 Random Vancomycin Level 14.4 mcg/ml
[2017-09-25] MEDS ORDERED: WARFARIN SOD 2 MG TAB PO ONE (16:00)
--- NOTE | 2017-09-25 16:56 | ECHOCARDIOGRAM REPORT ---
*NOTICE TO RECEIVING [employer] This information is strictly Confidential and protected under [place] law. [place] law prohibits you from making any further disclosure of this information unless further disclosure is expressly permitted by the written consent of the person to whom it pertains or is authorized by law. A general authorization for the release of medical or other information is not sufficient for this purpose. Hospital accepts no responsibility if the information is made available to any other person, INCLUDING THE PATIENT. Interpretation Summary * Name: KATIANA HOLLAND Study Date: 09/25/2017 01:23 PM BP: 139/76 mmHg * Patient Location: [facility] HR: 88 * : 1925 (M/d/yyyy) Gender: Male Height: 65 in * Age: 89 yrs Ethnicity: [place] Weight: 161 lb * Ordering Physician: Jose Moya * Performed By: Coby Nova RDCS * * Reason For Study: Cardiac Arrest * BSA: 1.8 m2 * -- Conclusions -- * 1. Normal LV size, mild concentric LVH. * 2. Normal LV systolic function. LVEF 60-65%. No regional wall motion abnormalities. * 3. Normal RV size and function. * 4. Well-seated bioprosthetic aortic valve with expected transvalvular gradients. * 5. Moderate mitral regurgitation. Mild mitral stenosis. * 6. Severe left atrial enlargement. * 7. Moderate to severe pulmonary hypertension. Est PASP 55-60 mmHg. * 8. No prior studies for comparison. Procedure Details * A complete two-dimensional transthoracic echocardiogram was performed (2D, M-mode, Doppler and color flow Doppler). Left Ventricle * The left ventricle is grossly normal size. * There is mild concentric left ventricular hypertrophy. * Ejection Fraction = 60-65%. * No regional wall motion abnormalities noted. Right Ventricle * The right ventricle is grossly normal size. * The right ventricular systolic function is normal as assessed by tricuspid annular plane systolic excursion (TAPSE) (normal >1.5 cm). Atria * The left atrium is severely dilated. * The right atrium is moderately dilated. * No ASD detected; PFO is not assessed. Mitral Valve * There is severe mitral annular calcification. * There is mild mitral stenosis. * There is moderate mitral regurgitation. Tricuspid Valve * The tricuspid valve is not well visualized, but is grossly normal. * There is no tricuspid stenosis. * There is mild tricuspid regurgitation. Aortic Valve * No hemodynamically significant valvular aortic stenosis. * There is no significant aortic regurgitation. * Bioprosthetic leaflets are not well visualized. * The prosthetic aortic valve is well-seated. * The gradient is normal for this prosthetic aortic valve. Pulmonic Valve * The pulmonary valve is inadequately visualized, but the Doppler data is adequate for interpretation. * Pulmonic stenosis is absent. * There is no significant pulmonary regurgitation. Great Vessels * The aortic root and proximal ascending aorta are normal sized. Pericardium/Pleural * There is no pericardial effusion. Great Vessels * IVC > 2.1, >50% change with respiration. Est RA 8 mmHg. MMode 2D Measurements and Calculations IVSd 1.3 cm IVSs 1.9 cm LVIDd 3.9 cm LVIDs 2.6 cm LVPWd 2.0 cm LVPWs 2.2 cm IVS/LVPW 0.66 FS 32.3 % EDV(Teich) 64.0 ml ESV(Teich) 24.8 ml EF(Teich) 61.3 % EDV(cubed) 57.2 ml ESV(cubed) 17.7 ml EF(cubed) 69.0 % % IVS thick 42.2 % % LVPW thick 11.4 % LV mass(C)d 263.2 grams LV mass(C)dI 145.9 grams/m\S\2 LV mass(C)s 241.0 grams LV mass(C)sI 133.6 grams/m\S\2 SV(Teich) 39.3 ml SI(Teich) 21.8 ml/m\S\2 SV(cubed) 39.5 ml SI(cubed) 21.9 ml/m\S\2 Ao root diam 3.1 cm Ao root area 7.5 cm\S\2 ACS 2.0 cm LA dimension 4.9 cm LA/Ao 1.6 LVAd ap4 30.5 cm\S\2 LVLd ap4 7.7 cm EDV(MOD-sp4) 104.0 ml EDV(sp4-el) 102.1 ml LVAs ap4 16.2 cm\S\2 LVLs ap4 7.0 cm ESV(MOD-sp4) 35.0 ml ESV(sp4-el) 32.2 ml EF(MOD-sp4) 66.3 % EF(sp4-el) 68.5 % LVAd ap2 23.4 cm\S\2 LVLd ap2 7.8 cm EDV(MOD-sp2) 65.2 ml EDV(sp2-el) 59.3 ml LVAs ap2 14.0 cm\S\2 LVLs ap2 6.9 cm ESV(MOD-sp2) 30.4 ml ESV(sp2-el) 24.3 ml EF(MOD-sp2) 53.4 % EF(sp2-el) 59.0 % LVLd %diff 1.2 % EDV(MOD-bp) 81.3 ml LVLs %diff -1.37 % ESV(MOD-bp) 32.1 ml EF(MOD-bp) 60.5 % SV(MOD-sp4) 69.0 ml SI(MOD-sp4) 38.2 ml/m\S\2 SV(MOD-sp2) 34.8 ml SI(MOD-sp2) 19.3 ml/m\S\2 SV(MOD-bp) 49.2 ml SI(MOD-bp) 27.2 ml/m\S\2 SV(sp4-el) 69.9 ml SI(sp4-el) 38.8 ml/m\S\2 SV(sp2-el) 35.0 ml SI(sp2-el) 19.4 ml/m\S\2 Doppler Measurements and Calculations MV E max libby 161.4 cm/sec MV dec time 0.21 sec Ao V2 max 213.6 cm/sec Ao max PG 18.3 mmHg Ao max PG (full) 8.0 mmHg Ao V2 mean 143.4 cm/sec Ao mean PG 9.4 mmHg Ao mean PG (full) 3.6 mmHg Ao V2 VTI 40.4 cm LV V1 max PG 10.3 mmHg LV V1 mean PG 5.8 mmHg LV V1 max 160.4 cm/sec LV V1 mean 112.6 cm/sec LV V1 VTI 32.5 cm MR max libby 483.9 cm/sec MR max PG 93.7 mmHg MR mean libby 374.5 cm/sec MR mean PG 62.1 mmHg MR VTI 135.8 cm SV(Ao) 301.7 ml SI(Ao) 167.2 ml/m\S\2 PA V2 max 101.2 cm/sec PA max PG 4.1 mmHg TR max libby 281.2 cm/sec
[2017-09-25] MEDS: SIMVASTATIN 20 MG TAB PO SCH (19:40)
[2017-09-25] MEDS: DOXAZosin MESYLATE TAB 2 MG TAB PO SCH (19:42)
[2017-09-26] VITALS (9 sets, daily range): BP systolic 105–148; BP diastolic 62–86; PULSE 77–91; TEMP 36.6–37.3; O2SAT 92–95
[2017-09-26 06:33] LABS: PROTHROMBIN TIME (PATIENT) 20.9 SECONDS (9.0-12.0)
[2017-09-26 06:55] LABS: BUN/CREATININE RATIO 18.5 (10-20); CALCIUM 8.7 mg/dl (8.5-10.1); CREATININE 2.52 mg/dl (0.60-1.40); POTASSIUM 4.5 mmol/L (3.5-5.1)
[2017-09-26] MEDS: COMBIGAN: ORDER AWAITING ACTION SCH ×4 (08:00→23:40)
[2017-09-26] MEDS: HYDROCORTISONE 1% CR 30 GM TUBE EXT SCH ×2 (08:02→21:05)
[2017-09-26] MEDS: PANTOprazole SOD 40 MG TAB PO SCH (08:02)
[2017-09-26] MEDS: ENALAPRIL MALEATE 10 MG TAB PO SCH (08:03)
[2017-09-26] MEDS: CHOLECALCIFEROL 1000 INTER.UNIT TAB PO SCH (08:03)
[2017-09-26] MEDS ORDERED: FUROSEMIDE INJ 40 MG in SYRINGE 0 ML IV SCH (09:00)
[2017-09-26] MEDS ORDERED: HydrALAZINE HCL 20 MG/ML VIAL IV. PRN (11:00)
--- NOTE | 2017-09-26 11:11 | Nephrology Progress Note ---
Nephrology Progress Note Date of Service Sep 26, 2017. Chief Complaint Evaluation and management for chronic kidney disease and volume overload. Subjective Mr Vann Was seen and examined in his room this morning. Overall he is feeling much better, denies any shortness of breath or chest pain. Appetite has been decent. Vital sign remained stable. Continues to respond to diuretics, net negative almost them 500 mL. Creatinine slightly worsened to 2.5, electrolyte remain acceptable. Review of Systems A complete review of systems was performed. Pertinent positives are noted above. All other systems are negative. Vital Signs Last 8 Hrs Date Time Temp Pulse Resp B/P (MAP) Pulse Ox O2 Delivery O2 Flow Rate FiO2 09/26/17 08:49 92 Room Air 09/26/17 08:03 37.2 86 18 137/75 (95) 92 09/26/17 04:00 95 Room Air CPAP 09/26/17 04:00 37.3 82 20 133/62 (85) 93 Room Air Last Recorded Weight Weight (Kilograms): 72.200 Physical Exam GENERAL: elderly male, AAA x 3, pleasant, healthy-appearing, not in any distress. NECK: Supple, no JVD. RESPIRATORY: Normal breathing efforts, no accessory muscle use, clear to auscultation bilaterally, no wheezes or rales. CARDIOVASCULAR: S1, S2 normal, rate rhythm regular. EXTREMITY: no lower extremity edema, dressing over rt reaves ulcer NEURO: speech fluent. PSYCHIATRY: Normal mood and judgment Social History Smoking Status: Former smoker Marital Status: Housing Status: lives with family Occupation: retired Laboratory Results Past 24 Hours 09/26/17 06:05 Test 09/26/17 06:05 Prothrombin Time 20.9 SECONDS (9.0-12.0) Prothromb Time International Ratio 2.0 (0.9-1.1) Anion Gap 6.0 mmol/L (3-11) Est Creatinine Clear Calc Drug Dose 17.3 ml/min Estimated GFR () 25.2 Estimated GFR (Non- 21.7 BUN/Creatinine Ratio 18.5 (10-20) Calcium Level 8.7 mg/dl (8.5-10.1) Allergies Coded Allergies: Aminoglycosides (Verified Allergy, Unknown, SWELLING,REDNESS, 03/11/17) Bacitracin (Verified Allergy, Unknown, SWELLING,REDNESS, 03/11/17) Neomycin (Verified Allergy, Unknown, SWELLING,REDNESS, 03/11/17) Penicillins (Verified Allergy, Unknown, HIVES, 03/11/17) Polymyxin B (Verified Allergy, Unknown, SWELLING,REDNESS, 03/11/17) Erythromycin (Verified Adverse Reaction, Unknown, DRY MOUTH, 03/11/17) Sulfa Antibiotics (Verified Adverse Reaction, Unknown, "CRYSTALLIZED IN MY URINE", 09/25/17) Verapamil (Verified Adverse Reaction, Unknown, DELUSIONS, HALLUCINATIONS, 03/11/17) Medications Current Inpatient Medications Medications (Trade) Dose Ordered Sig/Juan Route Start Time Stop Time Status Last Admin Dose Admin Acetaminophen (Tylenol Tab) 650 mg Q4H PRN PO 09/24/17 11:00 10/24/17 10:59 Al Hydrox/Mg Hydrox/Simethicone (Maalox Max Susp) 15 ml Q4H PRN PO 09/24/17 11:00 10/24/17 10:59 Magnesium Hydroxide (Milk Of Magnesia Susp) 30 ml Q12H PRN PO 09/24/17 11:00 10/24/17 10:59 Zolpidem Tartrate (Ambien Tab) 5 mg HSZ PRN PO 09/24/17 11:00 10/24/17 10:59 Ondansetron HCl (Zofran Inj) 4 mg Q6H PRN IV 09/24/17 11:00 10/24/17 10:59 Polyethylene (Miralax Powder Packet) 17 gm DAILY PRN PO 09/24/17 11:00 10/24/17 10:59 Albuterol (Ventolin Hfa Inhaler) 2 puffs BID PRN INH 09/24/17 11:00 10/24/17 10:59 Cholecalciferol (Vitamin D Tab) 1,000 inter.unit QAM PO 09/25/17 09:00 10/25/17 08:59 09/26/17 08:03 1,000 INTER.UNIT Doxazosin Mesylate (Cardura Tab) 2 mg HS PO 09/24/17 21:00 10/24/17 20:59 09/25/17 19:42 2 MG Pantoprazole Sodium (Protonix Tab) 40 mg QAM PO 09/25/17 09:00 10/25/17 08:59 09/26/17 08:02 40 MG Simvastatin (Zocor Tab) 20 mg QPM PO 09/24/17 21:00 10/24/17 20:59 09/25/17 19:40 20 MG Warfarin Sodium (Coumadin Tab) 5 mg WeFr@1600 PO 09/26/17 16:00 10/26/17 15:59 Miscellaneous Information (Order Awaiting Action) 1 ea QS N/A 09/24/17 16:00 10/24/17 15:59 Enalapril Maleate (Vasotec Tab) 20 mg DAILY PO 09/25/17 09:00 10/25/17 08:59 Future Hold 09/26/17 08:03 20 MG Vancomycin HCl (Consult) 1 ea UD PRN N/A 09/24/17 12:00 10/24/17 11:59 Warfarin Sodium (Coumadin Tab) 2.5 mg Mo@1600 PO 09/29/17 16:00 10/29/17 15:59 Hydrocortisone (Hydrocortisone 1% Crm) 1 appln Q12 EXT 09/24/17 21:00 10/24/17 20:59 09/26/17 08:02 1 APPLN Vancomycin HCl 1250 mg/Sodium Chloride 275 ml @ 125 mls/hr Q48H IV 09/25/17 09:30 10/04/17 09:29 09/25/17 10:36 125 MLS/HR Hydralazine HCl (HydrALAZINE INJ) 10 mg Q6H PRN IV. 09/26/17 11:00 10/26/17 10:59 UNV Impression 89-year-old gentlemen with history chronic atrial fibrillation, CHF with diastolic dysfunction, hypertension, stage 3 chronic kidney disease admitted with CHF exacerbation. 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 Has low grade proteinuria and microscopic hematuria. Has been on Lasix 20 milligram at home however has been taking only as needed. Started on IV Lasix with improvement in lower extremity edema however continues to be volume overloaded. Has history of anemia, prior evaluation by Hematology with bone marrow was unremarkable. Recent IV Venofer IV. Hemoglobin has been staying below 9. Recommendations --hold diuretics as patient has been persistent net negative, creatinine started to go. He seems to be reaching dry weight --will need close monitoring of renal function, check magnesium and phosphate every 48 hours considering being on high dose diuretics --if needed will resume Lasix orally at low-dose -- Epogen given on 09/24/17 --continue on low-salt diet --continue on home dose of ARB Will follow
--- NOTE | 2017-09-26 11:16 | Hospitalist Progress Note ---
Hospitalist Progress Note Date of Service Sep 26, 2017. (Dominique Brown ., HERNAN) Subjective Pt evaluation today including: conversation w/ patient, physical exam, lab review, review of studies, review of inpatient medication list Voiding: no voiding problems Patient resting in bed. Easily awakes. Denies any complaints. Laying flat in bed w/ no SOB. Patient denies any fever, chills, sweats, lightheadedness, dizziness, vision changes, CP, palpitations, edema, SOB, wheezing, cough, abdominal pain, nausea, vomiting, diarrhea, urinary symptoms, melena, numbness/tingling, weakness, muscle/joint pain, anxiety/depression, active bleeding, or new skin discoloration/changes. (Dominique Brown ., SANAC) Medications Current Inpatient Medications Medications (Trade) Dose Ordered Sig/Juan Route Start Time Stop Time Status Last Admin Dose Admin Acetaminophen (Tylenol Tab) 650 mg Q4H PRN PO 09/24/17 11:00 10/24/17 10:59 Al Hydrox/Mg Hydrox/Simethicone (Maalox Max Susp) 15 ml Q4H PRN PO 09/24/17 11:00 10/24/17 10:59 Magnesium Hydroxide (Milk Of Magnesia Susp) 30 ml Q12H PRN PO 09/24/17 11:00 10/24/17 10:59 Zolpidem Tartrate (Ambien Tab) 5 mg HSZ PRN PO 09/24/17 11:00 10/24/17 10:59 Ondansetron HCl (Zofran Inj) 4 mg Q6H PRN IV 09/24/17 11:00 10/24/17 10:59 Polyethylene (Miralax Powder Packet) 17 gm DAILY PRN PO 09/24/17 11:00 10/24/17 10:59 Albuterol (Ventolin Hfa Inhaler) 2 puffs BID PRN INH 09/24/17 11:00 10/24/17 10:59 Cholecalciferol (Vitamin D Tab) 1,000 inter.unit QAM PO 09/25/17 09:00 10/25/17 08:59 09/26/17 08:03 1,000 INTER.UNIT Doxazosin Mesylate (Cardura Tab) 2 mg HS PO 09/24/17 21:00 10/24/17 20:59 12/7/17 19:42 2 MG Pantoprazole Sodium (Protonix Tab) 40 mg QAM PO 09/25/17 09:00 10/25/17 08:59 09/26/17 08:02 40 MG Simvastatin (Zocor Tab) 20 mg QPM PO 09/24/17 21:00 10/24/17 20:59 09/25/17 19:40 20 MG Warfarin Sodium (Coumadin Tab) 5 mg WeFr@1600 PO 09/26/17 16:00 10/26/17 15:59 Miscellaneous Information (Order Awaiting Action) 1 ea QS N/A 09/24/17 16:00 10/24/17 15:59 Enalapril Maleate (Vasotec Tab) 20 mg DAILY PO 09/25/17 09:00 10/25/17 08:59 09/26/17 08:03 20 MG Vancomycin HCl (Consult) 1 ea UD PRN N/A 09/24/17 12:00 10/24/17 11:59 Warfarin Sodium (Coumadin Tab) 2.5 mg Mo@1600 PO 09/29/17 16:00 10/29/17 15:59 Hydrocortisone (Hydrocortisone 1% Crm) 1 appln Q12 EXT 09/24/17 21:00 10/24/17 20:59 09/26/17 08:02 1 APPLN Vancomycin HCl 1250 mg/Sodium Chloride 275 ml @ 125 mls/hr Q48H IV 09/25/17 09:30 10/04/17 09:29 09/25/17 10:36 125 MLS/HR (Dominique Brown, PA-C) Objective Vital Signs Date Time Temp Pulse Resp B/P (MAP) Pulse Ox O2 Delivery O2 Flow Rate FiO2 09/26/17 08:49 92 Room Air 09/26/17 08:03 37.2 86 18 137/75 (95) 92 09/26/17 04:00 95 Room Air CPAP 09/26/17 04:00 37.3 82 20 133/62 (85) 93 Room Air 09/26/17 00:53 91 148/83 (104) 09/26/17 00:00 95 Room Air CPAP 09/25/17 23:48 36.4 97 18 179/88 (118) 94 CPAP 09/25/17 20:14 95 Room Air 12/7/17 16:00 95 Room Air 09/25/17 15:57 36.8 81 18 126/76 (93) 95 Room Air 09/25/17 12:01 37.1 72 18 122/70 (87) 95 Room Air 09/25/17 12:00 94 Room Air (Dominique Brown, TEZ-C) Physical Exam General Appearance: no apparent distress Eyes: normal inspection, PERRL ENT: hearing grossly normal Neck: supple Respiratory/Chest: lungs clear, no respiratory distress, no accessory muscle use Cardiovascular: + irregularly irregular (rate controlled ) Abdomen: normal bowel sounds, non tender, soft Extremities: + swelling (+1 pitting edema to bilateral lower extremities ), + pertinent finding (RLE dressing C/D/I ) Neurologic/Psychiatric: alert, normal mood/affect, oriented x 3 Skin: normal color, warm/dry, no rash (Dominique Brown, TEZ-C) Laboratory Results Last 24 Hours Test 09/26/17 06:05 Prothrombin Time 20.9 SECONDS Prothromb Time International Ratio 2.0 Sodium Level 138 mmol/L Potassium Level 4.5 mmol/L Chloride Level 103 mmol/L Carbon Dioxide Level 29 mmol/L Anion Gap 6.0 mmol/L Blood Urea Nitrogen 47 mg/dl Creatinine 2.52 mg/dl Est Creatinine Clear Calc Drug Dose 17.3 ml/min Estimated GFR () 25.2 Estimated GFR (Non- 21.7 BUN/Creatinine Ratio 18.5 Random Glucose 91 mg/dl Calcium Level 8.7 mg/dl (Dominique Brown, PA-C) Assessment and Plan The patient is an 89-year-old white male with a significant past medical history of DVT, GI bleeding, hypertension, aortic valve replacement, MRSA carrier, [employer] filter placement, chronic kidney disease stage III, and CHF conditions, transferred from [facility] to this hospital because RLE wound and MC. Acute diastolic CHF exacerbation: - Admitted to [facility] for cardiac monitoring - O2 protocol, wean as tolerated - Treated w/ IV Lasix 40 mg x2 doses- hold further diuresis due to bump in Cr.- holding home dose of PO Lasix 20 mg daily - Monitor I&Os and daily weights - Cardiology following, appreciate recommendations CAD, s/p aortic valve replacement, permanent a.fib, HTN- follows w/ Dr. Paul: - Continue Cardura 2 mg HS, Zocor 20 mg HS - Continue Coumadin- adjust dosage PRN for INR goal of 2-3 - Hold Vasotec 20 mg daily due to bump in Cr- Hydralazine IV PRN for sbp >180 or dbp >100 RLE wound- MSSA: - IV Vancomycin- final culture/sensitives reviewed- start Clindamycin 300 mg QID + Floranex - Wound care consulted CKD stage, III- baseline Cr 1.7-2.3: - Nephrology following, appreciate recommendations -- Epogen given on 09/24/17 -- Continue on low-salt diet -- Continue on home dose of ARB - Hold nephrotoxic agents and renally dose medications as appropriate h/o VTE: Continue Coumadin Chronic anemia, pancytopenia: - Follow CBC - Continue outpatient workup with Dr. Cobb GI prophylaxis: Protonix 40 mg daily DVT prophylaxis: Coumadin Code Status: FULL, NO MECH VENTILATION Dispo: Discharge to home once medically stable- hopefully within the next 1-2 days- CM and PT/OT consulted (Dominique Brown, PA-C) I agree with PA assessment and plan and have seen and examined pt myself Resting comfortably in bed VSS Labs reviewed Noted to be in acute on chronic diastolic CHF exab Worsening CHRISTINE on CKSD Hold ACEI in addition to lasix Agree with nephro recs at this time CAD stable Cont to monitor (Christo Urbano D.O.)
[2017-09-26] MEDS: LACTOBACILLUS ACIDOPHILUS (FLORANEX) TAB PO SCH ×2 (12:50→15:45)
[2017-09-26] MEDS: CLINDAMYCIN HCL 150 MG CAP PO SCH ×3 (12:50→23:39)
[2017-09-26] MEDS ORDERED: WARFARIN SOD 5 MG TAB PO SCH (16:00)
[2017-09-26] MEDS ORDERED: COUGH DROP (SUGAR FREE) LOZ 24 LOZ/1 BOX PO PRN (16:15)
--- NOTE | 2017-09-26 16:21 | Cardiology Follow-Up ---
Subjective Subjective Date of Service: Sep 26, 2017. Pt evaluation today including: conversation w/ patient, physical exam, chart review, lab review, review of studies, review of inpatient medication list Additional Details: Breathing comfortably. No chest pain. No drainage from LE wound. Tele reviewed-- rate controlled AF Review of Systems Constitutional: No fever Respiratory: + shortness of breath, No cough, No sputum Cardiac: No chest pain Abdomen: No pain, No nausea Heme: No abnormal bleeding/bruising Skin: + problem reported (RLE wound) Objective Vital Signs Last Vital Signs Documentation Date Time Temp Pulse Resp B/P (MAP) Pulse Ox O2 Delivery O2 Flow Rate FiO2 09/26/17 15:39 36.9 80 18 124/73 (90) 95 09/26/17 12:04 Room Air Physical Exam: General Appearance: no apparent distress ENT: hearing grossly normal Neck: supple, no JVD Respiratory/Chest: lungs clear, + crackles (improved crackles at left base) Cardiovascular: + irregularly irregular (rate controlled ) Abdomen: normal bowel sounds, non tender, soft Extremities: + swelling (trace to 1+ LE edema right > left), + pertinent finding (RLE dressing C/D/I ) Neurologic/Psychiatric: alert, normal mood/affect, oriented x 3 Skin: warm/dry, no rash Assessment and Plan 1. Acute diastolic heart failure. 2. Chronic kidney disease, stage III-IV. 3. Pancytopenia/myelodysplastic syndrome, stable. 4. Permanent atrial fibrillation, rate controlled. 5. History of bioprosthetic aortic valve replacement. 6. Known coronary artery disease, small vessel disease. 7. Suspected cellulitis. Well perfused, improved congestion on exam. Negative 400+ yesterday BUN/SCr continues to trend up. Lasix/TYRONE held today. -- Appears euvolemic today -- diuretics on hold. Resume PO maintenance diuretics when OK per nephrology. -- AF Rate controlled off AV macario agents -- On home anticoagulation. From a cardiac standpoint OK for discharge to home when remaining medical issues stable. Can follow-up in cardiology clinic in next 1-2 weeks. Medications: Current Inpatient Medications Medications (Trade) Dose Ordered Sig/Juan Route Start Time Stop Time Status Last Admin Dose Admin Acetaminophen (Tylenol Tab) 650 mg Q4H PRN PO 09/24/17 11:00 10/24/17 10:59 Al Hydrox/Mg Hydrox/Simethicone (Maalox Max Susp) 15 ml Q4H PRN PO 09/24/17 11:00 10/24/17 10:59 Magnesium Hydroxide (Milk Of Magnesia Susp) 30 ml Q12H PRN PO 09/24/17 11:00 10/24/17 10:59 Zolpidem Tartrate (Ambien Tab) 5 mg HSZ PRN PO 09/24/17 11:00 10/24/17 10:59 Ondansetron HCl (Zofran Inj) 4 mg Q6H PRN IV 09/24/17 11:00 10/24/17 10:59 Polyethylene (Miralax Powder Packet) 17 gm DAILY PRN PO 09/24/17 11:00 10/24/17 10:59 Albuterol (Ventolin Hfa Inhaler) 2 puffs BID PRN INH 09/24/17 11:00 10/24/17 10:59 Cholecalciferol (Vitamin D Tab) 1,000 inter.unit QAM PO 09/25/17 09:00 10/25/17 08:59 09/26/17 08:03 1,000 INTER.UNIT Doxazosin Mesylate (Cardura Tab) 2 mg HS PO 09/24/17 21:00 10/24/17 20:59 09/25/17 19:42 2 MG Pantoprazole Sodium (Protonix Tab) 40 mg QAM PO 09/25/17 09:00 10/25/17 08:59 09/26/17 08:02 40 MG Simvastatin (Zocor Tab) 20 mg QPM PO 09/24/17 21:00 10/24/17 20:59 09/25/17 19:40 20 MG Warfarin Sodium (Coumadin Tab) 5 mg WeFr@1600 PO 09/26/17 16:00 10/26/17 15:59 09/26/17 15:43 5 MG Miscellaneous Information (Order Awaiting Action) 1 ea QS N/A 09/24/17 16:00 10/24/17 15:59 Enalapril Maleate (Vasotec Tab) 20 mg DAILY PO 09/25/17 09:00 10/25/17 08:59 Future Hold 09/26/17 08:03 20 MG Warfarin Sodium (Coumadin Tab) 2.5 mg Mo@1600 PO 09/29/17 16:00 10/29/17 15:59 Hydrocortisone (Hydrocortisone 1% Crm) 1 appln Q12 EXT 09/24/17 21:00 10/24/17 20:59 09/26/17 08:02 1 APPLN Hydralazine HCl (HydrALAZINE INJ) 10 mg Q6H PRN IV. 09/26/17 11:00 10/26/17 10:59 Clindamycin HCl (Cleocin Cap) 300 mg Q6 PO 09/26/17 12:00 10/06/17 11:59 09/26/17 12:50 300 MG Lactobacillus Acidophilus (Floranex Tab) 4 tab TIDM PO 09/26/17 12:00 10/26/17 11:59 09/26/17 15:45 4 TAB Menthol (Nice Nadiya) 1 nadiya PRN PRN PO 09/26/17 16:15 10/26/17 16:14 Lab Results: 09/26/17 06:05 Test 09/26/17 06:05 Prothrombin Time 20.9 SECONDS (9.0-12.0) Prothromb Time International Ratio 2.0 (0.9-1.1) Anion Gap 6.0 mmol/L (3-11) Est Creatinine Clear Calc Drug Dose 17.3 ml/min Estimated GFR () 25.2 Estimated GFR (Non- 21.7 BUN/Creatinine Ratio 18.5 (10-20) Calcium Level 8.7 mg/dl (8.5-10.1)
[2017-09-26] MEDS: SIMVASTATIN 20 MG TAB PO SCH (21:05)
[2017-09-26] MEDS: DOXAZosin MESYLATE TAB 2 MG TAB PO SCH (21:06)
[2017-09-27] VITALS (10 sets, daily range): BP systolic 100–163; BP diastolic 63–90; PULSE 75–103; TEMP 36.4–37.1; O2SAT 93–96
[2017-09-27] MEDS: CLINDAMYCIN HCL 150 MG CAP PO SCH ×4 (05:55→23:38)
[2017-09-27 07:30] LABS: INR 1.8 (0.9-1.1); PROTHROMBIN TIME (PATIENT) 18.7 SECONDS (9.0-12.0)
[2017-09-27 07:57] LABS: BUN/CREATININE RATIO 18.5 (10-20); CALCIUM 8.8 mg/dl (8.5-10.1); CREATININE 2.33 mg/dl (0.60-1.40); POTASSIUM 4.6 mmol/L (3.5-5.1)
[2017-09-27] MEDS: COMBIGAN: ORDER AWAITING ACTION SCH ×3 (08:00→23:38)
[2017-09-27] MEDS: CHOLECALCIFEROL 1000 INTER.UNIT TAB PO SCH (08:07)
[2017-09-27] MEDS: PANTOprazole SOD 40 MG TAB PO SCH (08:07)
[2017-09-27] MEDS: LACTOBACILLUS ACIDOPHILUS (FLORANEX) TAB PO SCH ×3 (08:07→16:19)
[2017-09-27] MEDS: HYDROCORTISONE 1% CR 30 GM TUBE EXT SCH ×2 (08:08→21:00)
[2017-09-27] MEDS ORDERED: NURSING VERBAL MED ORDER ONE (10:15)
--- NOTE | 2017-09-27 10:43 | Nephrology Progress Note ---
Nephrology Progress Note Date of Service Sep 27, 2017. Chief Complaint Evaluation and management for chronic kidney disease and volume overload. Subjective Mr Vann Was seen and examined in his room this morning. Overall he is feeling much better, denies any shortness of breath or chest pain. Appetite has been decent. Vital sign remained stable. Has been net negative off of diuretics. Creatinine improved to 2.3, electrolyte remain acceptable. Review of Systems A complete review of systems was performed. Pertinent positives are noted above. All other systems are negative. Vital Signs Last 8 Hrs Date Time Temp Pulse Resp B/P (MAP) Pulse Ox O2 Delivery O2 Flow Rate FiO2 09/27/17 07:15 36.9 80 18 100/63 (75) 95 Room Air 09/27/17 04:00 Room Air 09/27/17 04:00 37.1 75 18 152/75 (100) 93 Room Air Last Recorded Weight Weight (Kilograms): 72.500 Physical Exam GENERAL: elderly male, AAA x 3, pleasant, healthy-appearing, not in any distress. NECK: Supple, no JVD. RESPIRATORY: Normal breathing efforts, no accessory muscle use, clear to auscultation bilaterally, no wheezes or rales. CARDIOVASCULAR: S1, S2 normal, rate rhythm regular. EXTREMITY: no lower extremity edema, dressing over rt reaves ulcer NEURO: speech fluent. PSYCHIATRY: Normal mood and judgment Social History Smoking Status: Former smoker Marital Status: Housing Status: lives with family Occupation: retired Laboratory Results Past 24 Hours 09/27/17 06:30 Test 09/27/17 06:30 Prothrombin Time 18.7 SECONDS (9.0-12.0) Prothromb Time International Ratio 1.8 (0.9-1.1) Anion Gap 6.0 mmol/L (3-11) Est Creatinine Clear Calc Drug Dose 18.7 ml/min Estimated GFR () 27.7 Estimated GFR (Non- 23.9 BUN/Creatinine Ratio 18.5 (10-20) Calcium Level 8.8 mg/dl (8.5-10.1) Allergies Coded Allergies: Aminoglycosides (Verified Allergy, Unknown, SWELLING,REDNESS, 03/11/17) Bacitracin (Verified Allergy, Unknown, SWELLING,REDNESS, 03/11/17) Neomycin (Verified Allergy, Unknown, SWELLING,REDNESS, 03/11/17) Penicillins (Verified Allergy, Unknown, HIVES, 03/11/17) Polymyxin B (Verified Allergy, Unknown, SWELLING,REDNESS, 03/11/17) Erythromycin (Verified Adverse Reaction, Unknown, DRY MOUTH, 03/11/17) Sulfa Antibiotics (Verified Adverse Reaction, Unknown, "CRYSTALLIZED IN MY URINE", 09/25/17) Verapamil (Verified Adverse Reaction, Unknown, DELUSIONS, HALLUCINATIONS, 03/11/17) Medications Current Inpatient Medications Medications (Trade) Dose Ordered Sig/Juan Route Start Time Stop Time Status Last Admin Dose Admin Acetaminophen (Tylenol Tab) 650 mg Q4H PRN PO 09/24/17 11:00 10/24/17 10:59 Al Hydrox/Mg Hydrox/Simethicone (Maalox Max Susp) 15 ml Q4H PRN PO 09/24/17 11:00 10/24/17 10:59 Magnesium Hydroxide (Milk Of Magnesia Susp) 30 ml Q12H PRN PO 09/24/17 11:00 10/24/17 10:59 Zolpidem Tartrate (Ambien Tab) 5 mg HSZ PRN PO 09/24/17 11:00 10/24/17 10:59 Ondansetron HCl (Zofran Inj) 4 mg Q6H PRN IV 09/24/17 11:00 10/24/17 10:59 Polyethylene (Miralax Powder Packet) 17 gm DAILY PRN PO 09/24/17 11:00 10/24/17 10:59 Albuterol (Ventolin Hfa Inhaler) 2 puffs BID PRN INH 09/24/17 11:00 10/24/17 10:59 Cholecalciferol (Vitamin D Tab) 1,000 inter.unit QAM PO 09/25/17 09:00 10/25/17 08:59 09/27/17 08:07 1,000 INTER.UNIT Doxazosin Mesylate (Cardura Tab) 2 mg HS PO 09/24/17 21:00 10/24/17 20:59 09/26/17 21:06 2 MG Pantoprazole Sodium (Protonix Tab) 40 mg QAM PO 09/25/17 09:00 10/25/17 08:59 09/27/17 08:07 40 MG Simvastatin (Zocor Tab) 20 mg QPM PO 09/24/17 21:00 10/24/17 20:59 09/26/17 21:05 20 MG Warfarin Sodium (Coumadin Tab) 5 mg WeFr@1600 PO 09/26/17 16:00 10/26/17 15:59 09/26/17 15:43 5 MG Miscellaneous Information (Order Awaiting Action) 1 ea QS N/A 09/24/17 16:00 10/24/17 15:59 Enalapril Maleate (Vasotec Tab) 20 mg DAILY PO 09/25/17 09:00 10/25/17 08:59 Future Hold 09/26/17 08:03 20 MG Warfarin Sodium (Coumadin Tab) 2.5 mg Mo@1600 PO 09/29/17 16:00 10/29/17 15:59 Hydrocortisone (Hydrocortisone 1% Crm) 1 appln Q12 EXT 09/24/17 21:00 10/24/17 20:59 09/27/17 08:08 1 APPLN Hydralazine HCl (HydrALAZINE INJ) 10 mg Q6H PRN IV. 09/26/17 11:00 10/26/17 10:59 Clindamycin HCl (Cleocin Cap) 300 mg Q6 PO 09/26/17 12:00 10/06/17 11:59 09/27/17 05:55 300 MG Lactobacillus Acidophilus (Floranex Tab) 4 tab TIDM PO 09/26/17 12:00 10/26/17 11:59 09/27/17 08:07 4 TAB Menthol (Nice Nadiya) 1 nadiya PRN PRN PO 09/26/17 16:15 10/26/17 16:14 Impression 89-year-old gentlemen with history chronic atrial fibrillation, CHF with diastolic dysfunction, hypertension, stage 3 chronic kidney disease admitted with CHF exacerbation. 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 Has low grade proteinuria and microscopic hematuria. Has been on Lasix 20 milligram at home however has been taking only as needed. Started on IV Lasix with improvement in lower extremity edema however continues to be volume overloaded. Has history of anemia, prior evaluation by Hematology with bone marrow was unremarkable. Recent IV Venofer IV. Hemoglobin has been staying below 9. Recommendations --continue to hold diuretics as patient has been persistent net negative, volume status acceptable --if renal function remained stable, okay to be discharged tomorrow --patient has outpatient follow-up appointment scheduled with Dr. Sorensen on -- resume Lasix 20 mg on discharge. -- Epogen given on 09/24/17 --continue on low-salt diet --continue on home dose of ARB Will follow
--- NOTE | 2017-09-27 14:34 | Progress Note ---
Subjective Date of Service: Sep 27, 2017. Subjective Pt evaluation today including: conversation w/ patient, physical exam, chart review, lab review, review of studies, review of inpatient medication list Review of Systems Constitutional: No fever, No chills, No sweats Respiratory: No cough, No sputum, No wheezing, No shortness of breath, No dyspnea on exertion Cardiac: No chest pain, No orthopnea, No PND, No edema Abdomen: No pain, No nausea, No vomiting, No diarrhea, No constipation Musculoskeletal: No joint pain, No muscle pain, No swelling, No calf pain Male : No dysuria, No urinary frequency, No incontinence, No slowing stream Neurologic: No memory loss, No paralysis, No weakness, No numbness/tingling Psychiatric: No depression symptoms, No anhedonism, No anxiety, No insomnia Skin: No rash, No itch Objective Vital Signs Date Time Temp Pulse Resp B/P (MAP) Pulse Ox O2 Delivery O2 Flow Rate FiO2 09/27/17 12:10 36.4 77 18 132/74 (93) 96 Room Air 09/27/17 12:00 96 Room Air 09/27/17 08:00 95 Room Air 09/27/17 07:15 36.9 80 18 100/63 (75) 95 Room Air 09/27/17 04:00 Room Air 09/27/17 04:00 37.1 75 18 152/75 (100) 93 Room Air 09/27/17 00:00 36.9 94 18 119/69 (86) 95 Room Air 09/27/17 00:00 Room Air 09/26/17 20:41 Room Air 09/26/17 19:49 36.6 80 18 148/86 (106) 95 Room Air 09/26/17 16:00 Room Air 09/26/17 15:39 36.9 80 18 124/73 (90) 95 Physical Exam General Appearance: WD/WN, no apparent distress Eyes: normal inspection, PERRL, EOMI, sclerae normal Neck: supple, no adenopathy, thyroid normal, no JVD Respiratory/Chest: chest non-tender, lungs clear, normal breath sounds, no respiratory distress Cardiovascular: regular rate, rhythm, no edema, no gallop, no JVD Abdomen: normal bowel sounds, non tender, soft, no organomegaly Neurologic/Psychiatric: no motor/sensory deficits, alert, normal mood/affect, oriented x 3 Laboratory Results Last 24 Hours Test 09/27/17 06:30 Prothrombin Time 18.7 SECONDS Prothromb Time International Ratio 1.8 Sodium Level 138 mmol/L Potassium Level 4.6 mmol/L Chloride Level 104 mmol/L Carbon Dioxide Level 28 mmol/L Anion Gap 6.0 mmol/L Blood Urea Nitrogen 43 mg/dl Creatinine 2.33 mg/dl Est Creatinine Clear Calc Drug Dose 18.7 ml/min Estimated GFR () 27.7 Estimated GFR (Non- 23.9 BUN/Creatinine Ratio 18.5 Random Glucose 108 mg/dl Calcium Level 8.8 mg/dl Assessment and Plan The patient is an 89-year-old white male with a significant past medical history of DVT, GI bleeding, hypertension, aortic valve replacement, MRSA carrier, [place] filter placement, chronic kidney disease stage III, and CHF conditions, transferred from [facility] to this hospital because RLE wound and MC. Acute diastolic CHF exacerbation: - Admitted to [facility] for cardiac monitoring - O2 protocol, weaned off O2 - Treated w/ IV Lasix 40 mg x2 doses- hold further diuresis due to bump in Cr.- holding home dose of PO Lasix 20 mg daily, will continue on DC - Monitor I&Os and daily weights - Cardiology following, appreciate recommendations CAD, s/p aortic valve replacement, permanent a.fib, HTN- follows w/ Dr. Paul: - Continue Cardura 2 mg HS, Zocor 20 mg HS - Continue Coumadin- adjust dosage PRN for INR goal of 2-3 - Hold Vasotec 20 mg daily due to bump in Cr- Hydralazine IV PRN for sbp >180 or dbp >100 RLE wound- MSSA: - IV Vancomycin- final culture/sensitives reviewed- start Clindamycin 300 mg QID + Floranex - Wound care consulted CKD stage, III- baseline Cr 1.7-2.3: - Nephrology following, appreciate recommendations -- Epogen given on 09/24/17 -- Continue on low-salt diet -- Continue on home dose of ARB - Hold nephrotoxic agents and renally dose medications as appropriate h/o VTE: Continue Coumadin Chronic anemia, pancytopenia: - Follow CBC - Continue outpatient workup with Dr. Cobb GI prophylaxis: Protonix 40 mg daily DVT prophylaxis: Coumadin Code Status: FULL, NO MECH VENTILATION
[2017-09-27] MEDS ORDERED: WARFARIN SOD 5 MG TAB PO ONE (16:00)
[2017-09-27] MEDS: SIMVASTATIN 20 MG TAB PO SCH (21:10)
[2017-09-27] MEDS: DOXAZosin MESYLATE TAB 2 MG TAB PO SCH (21:10)
[2017-09-28 00:34] VITALS: BP 123/64; PULSE 80; TEMP 37.1; O2SAT 95
[2017-09-28 04:00] VITALS: BP 163/93; PULSE 82; TEMP 36.3; O2SAT 97
[2017-09-28 05:58] LABS: INR 2.1 (0.9-1.1); PROTHROMBIN TIME (PATIENT) 22.1 SECONDS (9.0-12.0)
[2017-09-28] MEDS: CLINDAMYCIN HCL 150 MG CAP PO SCH ×2 (06:07→11:49)
[2017-09-28 07:35] VITALS: O2SAT 96
[2017-09-28 07:48] VITALS: BP 147/84; PULSE 85; TEMP 36.5; O2SAT 92
[2017-09-28] MEDS: COMBIGAN: ORDER AWAITING ACTION SCH (08:00)
[2017-09-28] MEDS: PANTOprazole SOD 40 MG TAB PO SCH (08:03)
[2017-09-28] MEDS: CHOLECALCIFEROL 1000 INTER.UNIT TAB PO SCH (08:03)
[2017-09-28] MEDS: LACTOBACILLUS ACIDOPHILUS (FLORANEX) TAB PO SCH ×2 (08:04→11:49)
[2017-09-28] MEDS: HYDROCORTISONE 1% CR 30 GM TUBE EXT SCH (08:05)
[2017-09-28 10:16] LABS: BUN/CREATININE RATIO 23.9 (10-20); CALCIUM 8.7 mg/dl (8.5-10.1); CREATININE 2.2 mg/dl (0.60-1.40); POTASSIUM 5.2 mmol/L (3.5-5.1)
[2017-09-28 10:33] VITALS: BP 147/84; PULSE 85; TEMP 36.5; O2SAT 92
--- NOTE | 2017-09-28 11:16 | Nephrology Progress Note ---
Nephrology Progress Note Date of Service Sep 28, 2017. Chief Complaint F/U for chronic kidney disease and volume overload. Subjective Mr Vann was seen and examined in his room this morning. Overall he has been feeling well, denies any shortness of breath or chest pain. Has been voiding normally. Appetite decent, blood pressure well control. Creatinine improved to 2.2, electrolyte acceptable. Review of Systems A complete review of systems was performed. Pertinent positives are noted above. All other systems are negative. Vital Signs Last 8 Hrs Date Time Temp Pulse Resp B/P (MAP) Pulse Ox O2 Delivery O2 Flow Rate FiO2 09/28/17 10:33 36.5 85 18 92 Room Air 09/28/17 07:48 36.5 85 18 147/84 (105) 92 Room Air 09/28/17 07:35 96 Room Air 09/28/17 04:00 36.3 82 18 163/93 (116) 97 CPAP 09/28/17 04:00 Room Air Last Recorded Weight Weight (Kilograms): 73.000 Physical Exam GENERAL: elderly male, AAA x 3, pleasant, healthy-appearing, not in any distress. NECK: Supple, no JVD. RESPIRATORY: Normal breathing efforts, no accessory muscle use, clear to auscultation bilaterally, no wheezes or rales. CARDIOVASCULAR: S1, S2 normal, rate rhythm regular. EXTREMITY: no lower extremity edema, dressing over rt reaves ulcer NEURO: speech fluent. PSYCHIATRY: Normal mood and judgment Social History Smoking Status: Former smoker Marital Status: Housing Status: lives with family Occupation: retired Laboratory Results Past 24 Hours 09/28/17 05:25 Test 09/28/17 05:25 Prothrombin Time 22.1 SECONDS (9.0-12.0) Prothromb Time International Ratio 2.1 (0.9-1.1) Anion Gap 4.0 mmol/L (3-11) Est Creatinine Clear Calc Drug Dose 19.8 ml/min Estimated GFR () 29.7 Estimated GFR (Non- 25.6 BUN/Creatinine Ratio 23.9 (10-20) Calcium Level 8.7 mg/dl (8.5-10.1) Chemistry Specimen Hemolysis Allergies Coded Allergies: Aminoglycosides (Verified Allergy, Unknown, SWELLING,REDNESS, 03/11/17) Bacitracin (Verified Allergy, Unknown, SWELLING,REDNESS, 03/11/17) Neomycin (Verified Allergy, Unknown, SWELLING,REDNESS, 03/11/17) Penicillins (Verified Allergy, Unknown, HIVES, 03/11/17) Polymyxin B (Verified Allergy, Unknown, SWELLING,REDNESS, 03/11/17) Erythromycin (Verified Adverse Reaction, Unknown, DRY MOUTH, 03/11/17) Sulfa Antibiotics (Verified Adverse Reaction, Unknown, "CRYSTALLIZED IN MY URINE", 09/25/17) Verapamil (Verified Adverse Reaction, Unknown, DELUSIONS, HALLUCINATIONS, 03/11/17) Medications Current Inpatient Medications Medications (Trade) Dose Ordered Sig/Juan Route Start Time Stop Time Status Last Admin Dose Admin Acetaminophen (Tylenol Tab) 650 mg Q4H PRN PO 09/24/17 11:00 10/24/17 10:59 Al Hydrox/Mg Hydrox/Simethicone (Maalox Max Susp) 15 ml Q4H PRN PO 09/24/17 11:00 10/24/17 10:59 Magnesium Hydroxide (Milk Of Magnesia Susp) 30 ml Q12H PRN PO 09/24/17 11:00 10/24/17 10:59 Zolpidem Tartrate (Ambien Tab) 5 mg HSZ PRN PO 09/24/17 11:00 10/24/17 10:59 Ondansetron HCl (Zofran Inj) 4 mg Q6H PRN IV 09/24/17 11:00 10/24/17 10:59 Polyethylene (Miralax Powder Packet) 17 gm DAILY PRN PO 09/24/17 11:00 10/24/17 10:59 Albuterol (Ventolin Hfa Inhaler) 2 puffs BID PRN INH 09/24/17 11:00 10/24/17 10:59 Cholecalciferol (Vitamin D Tab) 1,000 inter.unit QAM PO 09/25/17 09:00 10/25/17 08:59 09/28/17 08:03 1,000 INTER.UNIT Doxazosin Mesylate (Cardura Tab) 2 mg HS PO 09/24/17 21:00 10/24/17 20:59 09/27/17 21:10 2 MG Pantoprazole Sodium (Protonix Tab) 40 mg QAM PO 09/25/17 09:00 10/25/17 08:59 09/28/17 08:03 40 MG Simvastatin (Zocor Tab) 20 mg QPM PO 09/24/17 21:00 10/24/17 20:59 09/27/17 21:10 20 MG Warfarin Sodium (Coumadin Tab) 5 mg WeFr@1600 PO 09/26/17 16:00 10/26/17 15:59 09/26/17 15:43 5 MG Miscellaneous Information (Order Awaiting Action) 1 ea QS N/A 09/24/17 16:00 10/24/17 15:59 Enalapril Maleate (Vasotec Tab) 20 mg DAILY PO 09/25/17 09:00 10/25/17 08:59 Future Hold 09/26/17 08:03 20 MG Warfarin Sodium (Coumadin Tab) 2.5 mg Mo@1600 PO 09/29/17 16:00 10/29/17 15:59 Hydrocortisone (Hydrocortisone 1% Crm) 1 appln Q12 EXT 09/24/17 21:00 10/24/17 20:59 09/28/17 08:05 1 APPLN Hydralazine HCl (HydrALAZINE INJ) 10 mg Q6H PRN IV. 09/26/17 11:00 10/26/17 10:59 Clindamycin HCl (Cleocin Cap) 300 mg Q6 PO 09/26/17 12:00 10/06/17 11:59 09/28/17 06:07 300 MG Lactobacillus Acidophilus (Floranex Tab) 4 tab TIDM PO 09/26/17 12:00 10/26/17 11:59 09/28/17 08:04 4 TAB Menthol (Nice Nadiya) 1 nadiya PRN PRN PO 09/26/17 16:15 10/26/17 16:14 Impression 89-year-old gentlemen with history chronic atrial fibrillation, CHF with diastolic dysfunction, hypertension, stage 3 chronic kidney disease admitted with CHF exacerbation. 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 Has low grade proteinuria and microscopic hematuria. Has been on Lasix 20 milligram at home however has been taking only as needed. Started on IV Lasix with improvement in lower extremity edema however continues to be volume overloaded. Has history of anemia, prior evaluation by Hematology with bone marrow was unremarkable. Recent IV Venofer IV. Hemoglobin has been staying below 9. Recommendations --as renal function improving, electrolyte acceptable, okay to be discharged with outpatient follow-up --patient has outpatient follow-up appointment scheduled with Dr. Sorensen on --follow-up renal panel in 2-4 days after discharge -- resume Lasix 20 mg on discharge. -- Epogen given on 09/24/17 --continue on low-salt diet --continue on home dose of ARB Will follow
[2017-09-28] MEDS ORDERED: CLC150 PO ×2 (11:22)
--- NOTE | 2017-09-28 11:26 | Discharge Instructions ---
Discharge Instructions Date of Service Sep 28, 2017. Admission Reason for Admission: Chf Exacerbation Discharge Discharge Diagnosis / Problem: congestive heart failure exacerbation Discharge Goals Goal(s): Decrease discomfort, Improve function, Increase independence, Improve disease control, Learn about illness, Diagnostic testing, Therapeutic intervention, Prevent Disease Progression Activity Recommendations Activity Limitations: resume your previous activity Exercise/Sports Limitations: as tolerated . Instructions / Follow-Up Instructions / Follow-Up Patient to be discharged home Please continue to take antibiotic clindamycin 4 times a day for 7 more days Please resume all other home medications including lasix Will need to follow up with Dr Paul in cardiology clinic in 1-2 weeks Follow up with Dr Sorensen as scheduled If worsening shortness of breath, chest pain please report to ER Current Hospital Diet Patient's current hospital diet: AHA Diet (Heart Healthy) Discharge Diet Recommended Diet: AHA Diet (Heart Healthy), Low Sodium Diet (2gm Na) Pending Studies Studies pending at discharge: no Laboratory Results Lipid Panel Test 09/25/17 08:10 Range/Units Triglycerides Level 52 0-150 mg/dl Cholesterol Level 92 0-200 mg/dl HDL Cholesterol 49 mg/dl Cholesterol/HDL Ratio 1.9 LDL Cholesterol, Calculated 33 mg/dl Medical Emergencies . Who to Call and When: Medical Emergencies: If at any time you feel your situation is an emergency, please call 911 immediately. . Non-Emergent Contact Non-Emergency issues call your: Primary Care Provider Call Non-Emergent contact if: you have a fever, your pain is worsening, you have any medication questions . . "Provider Documentation" section prepared by Chrsito Urbano. . VTE Core Measure Inpt VTE Proph given/why not?: Warfarin (Coumadin)
[2017-09-28 12:00] VITALS: O2SAT 92
--- NOTE | 2017-09-28 13:58 | Discharge Summary ---
Discharge Summary Date of Service Sep 28, 2017. Discharge Summary Admission Date: Sep 24, 2017 at 11:06 Discharge Date: Sep 28, 2017 Discharge Disposition: Home Principal Diagnosis: CHF exacerbation Immunizations: Have You Had Influenza Vaccine: Yes Influenza Vaccine Date: Apr 29, 2010 History of Tetanus Vaccine?: No Tetanus Immunization Date: Jan 05, 2001 History of Pneumococcal: Yes Pneumococcal Date: Apr 29, 2010 History of Hepatitis B Vaccine: No Consultations: Cardiology Nephrology Medication Reconciliation New Medications: Clindamycin HCl (Clindamycin HCl) 150 Mg Cap 300 MG PO Q6 for 7 Days, #56 CAP Continued Medications: Acetaminophen (Tylenol) 500 Mg Tab 500 MG PO Q4-6 PRN for Pain, TAB Albuterol Sulfate (Proventil Hfa) 108 Mcg/Act Aer 1 PUFF INH prn PRN for Wheezing Brimonidine Tartrate-Timolol M (Combigan) 1 Jil Jil 1 DROP OPB Q2D Cholecalciferol (Vitamin D3) 1,000 Unit Tab 1 TAB PO QAM, TAB Doxazosin Mesylate (Cardura) 2 Mg Tab 2 MG PO HS, TAB Fluticasone Prop/Salmeterol (Advair Diskus 100/50 60 Dose) 1 Ea Aerp 1 PUFF INH BID, INHALER Furosemide (Lasix) 20 Mg Tab 20 MG PO QAM, TAB Pantoprazole (Protonix) 40 Mg Tab 40 MG PO QAM, TAB Quinapril Hcl (Quinapril Hcl) 20 Mg Tab 1 TAB PO DAILY for 0 Days, TAB 3 Refills Simvastatin (Zocor) 20 Mg Tab 20 MG PO QPM, TAB Warfarin Sod (Jantoven) 2.5 Mg Tab 2.5 MG PO mondays, TAB Warfarin Sodium (Coumadin) 5 Mg Tab 5 MG PO 3XWK, TAB Discharge Exam Review of Systems: Constitutional: No fever, No chills, No sweats, No weakness Eyes: No worsening of vision, No eye pain, No redness, No discharge ENT: No hearing loss, No unusual epistaxis, No nasal symptoms, No sore throat, No tinnitus Respiratory: No cough, No sputum, No wheezing, No shortness of breath, No dyspnea on exertion Cardiovascular: No chest pain, No orthopnea, No PND, No edema Abdomen: No pain, No nausea, No vomiting, No diarrhea Musculoskeletal: No joint pain, No muscle pain, No swelling, No calf pain Genitourinary - Male: No hematuria, No dysuria, No urinary frequency, No urinary urgency Neurologic: No memory loss, No paralysis, No weakness, No numbness/tingling Psychiatric: No depression symptoms, No anhedonism, No anxiety, No insomnia Endocrine: No fatigue, No excessive thirst Integumentary: No rash, No itch Physical Exam: General Appearance: WD/WN, no apparent distress Eyes: normal inspection, PERRL, EOMI, sclerae normal ENT: normal ENT inspection, hearing grossly normal, TMs normal, pharynx normal Neck: supple, no adenopathy, thyroid normal, no JVD Respiratory/Chest: chest non-tender, lungs clear, normal breath sounds, no respiratory distress Cardiovascular: regular rate, rhythm, no edema, no gallop, no JVD Abdomen / GI: normal bowel sounds, non tender, soft, no organomegaly, no pulsatile mass Extremities: normal inspection, no calf tenderness, normal capillary refill , no pedal edema Neurologic/Psychiatric: no motor/sensory deficits, alert, normal mood/affect , oriented x 3 Skin: normal color, warm/dry, no rash Lymphatic: no adenopathy Hospital Course The patient is an 89-year-old white male with a significant past medical history of DVT, GI bleeding, hypertension, aortic valve replacement, MRSA carrier, [place] filter placement, chronic kidney disease stage III, and CHF conditions, transferred from [facility] Room to this hospital because RLE wound and MC. Acute diastolic CHF exacerbation: - Admitted to [facility] for cardiac monitoring - O2 protocol, weaned off O2 - Treated w/ IV Lasix 40 mg x2 doses- hold further diuresis due to bump in Cr.- holding home dose of PO Lasix 20 mg daily, will continue on DC - Monitor I&Os and daily weights - Cardiology following, appreciate recommendations CAD, s/p aortic valve replacement, permanent a.fib, HTN- follows w/ Dr. Paul: - Continue Cardura 2 mg HS, Zocor 20 mg HS - Continue Coumadin- adjust dosage PRN for INR goal of 2-3 - Hold Vasotec 20 mg daily due to bump in Cr- Hydralazine IV PRN for sbp >180 or dbp >100 RLE wound- MSSA: - IV Vancomycin- final culture/sensitives reviewed- start Clindamycin 300 mg QID + Floranex, will cont on DC for 7 more days - Wound care consulted CKD stage, III- baseline Cr 1.7-2.3: - Nephrology following, appreciate recommendations -- Epogen given on 09/24/17 -- Continue on low-salt diet -- Continue on home dose of ARB - Hold nephrotoxic agents and renally dose medications as appropriate h/o VTE: Continue Coumadin Chronic anemia, pancytopenia: - Follow CBC - Continue outpatient workup with Dr. Cobb GI prophylaxis: Protonix 40 mg daily DVT prophylaxis: Coumadin Code Status: FULL, NO MECH VENTILATION Total Time Spent: Greater than 30 minutes This includes examination of the patient, discharge planning, medication reconciliation, and communication with other providers. Discharge Instructions Please refer to the electronic Patient Visit Report (Discharge Instructions) for additional information. Additional Copies To Naveed Kelsey M.D.
[2017-09-29] MEDS ORDERED: WARFARIN SOD 2.5 MG TAB PO SCH (16:00)
== END 2017-09-28 14:35 | disposition home or self-care (01) | DRG 291 ==
LOC: C.MED 10:12 → OBSVTOIN 11:06
PROVIDERS: ADMIT Internal Medicine; ATTEND Hospitalist
DX: I13.0 Hypertensive heart and chronic kidney disease with heart failure and stage 1 through stage 4 chronic kidney disease, or unspecified chronic kidney disease (principal); I50.33 Acute on chronic diastolic (congestive) heart failure; N18.4 Chronic kidney disease, stage 4 (severe); D61.818 Other pancytopenia; L03.115 Cellulitis of right lower limb; L97.819 Non-pressure chronic ulcer of other part of right lower leg with unspecified severity; B95.61 Methicillin susceptible Staphylococcus aureus infection as the cause of diseases classified elsewhere; D46.9 Myelodysplastic syndrome, unspecified; R31.29 Other microscopic hematuria; L29.9 Pruritus, unspecified; T50.1X6A Underdosing of loop [high-ceiling] diuretics, initial encounter; Z91.128 Patient's intentional underdosing of medication regimen for other reason; I48.2 Chronic atrial fibrillation; I25.10 Atherosclerotic heart disease of native coronary artery without angina pectoris; K21.9 Gastro-esophageal reflux disease without esophagitis; E78.5 Hyperlipidemia, unspecified; N40.0 Benign prostatic hyperplasia without lower urinary tract symptoms; G47.33 Obstructive sleep apnea (adult) (pediatric); Z99.89 Dependence on other enabling machines and devices; Z22.322 Carrier or suspected carrier of Methicillin resistant Staphylococcus aureus; Z96.653 Presence of artificial knee joint, bilateral; Z95.3 Presence of xenogenic heart valve; Z95.828 Presence of other vascular implants and grafts; Z86.711 Personal history of pulmonary embolism; Z86.718 Personal history of other venous thrombosis and embolism; Z87.891 Personal history of nicotine dependence; Z91.81 History of falling; Z79.51 Long term (current) use of inhaled steroids; Z79.01 Long term (current) use of anticoagulants; Z79.899 Other long term (current) drug therapy

== ENCOUNTER → 2017-09-30 | Outpatient (CLI) | payer OTHER ==
[~2017-09-30] MED LIST changes: +ADVIN10/60 INH; +CLC150 PO; +WARF2.5T8 PO
[2017-09-30 17:35] LABS: HEMATOCRIT 32.5 % (42-52); MEAN CELL VOLUME 96.7 fL (80-100); MEAN CORPUSCULAR HEMOGLOBIN 30.1 pg (25-34); MEAN CORPUSCULAR HGB CONC 31.1 g/dl (32-36); PLATELET COUNT 102 K/uL (130-400); RED BLOOD COUNT 3.36 M/uL (4.7-6.1); WHITE BLOOD COUNT 3.13 K/uL (4.8-10.8)
[2017-09-30 17:45] LABS: URINE APPEARANCE CLEAR (CLEAR); URINE BILIRUBIN NEG (NEG); URINE COLOR YELLOW; URINE NITRITE NEG (NEG); URINE SPECIFIC GRAVITY 1.019 (1.000-1.030); UROBILINOGEN NEG (NEG)
[2017-09-30 17:49] LABS: INR 2.3 (0.9-1.1); PROTHROMBIN TIME (PATIENT) 23.6 SECONDS (9.0-12.0)
[2017-09-30 18:01] LABS: BLOOD UREA NITROGEN 53 mg/dl (7-18); BUN/CREATININE RATIO 23.2 (10-20); CALCIUM 8.4 mg/dl (8.5-10.1); CARBON DIOXIDE 24 mmol/L (21-32); CHLORIDE 106 mmol/L (98-107); CREATININE 2.27 mg/dl (0.60-1.40); GLUCOSE 130 mg/dl (70-99); POTASSIUM 4.7 mmol/L (3.5-5.1); SODIUM 136 mmol/L (136-145)
[2017-09-30 18:09] LABS: FERRITIN 137.8 ng/ml (8.0-388.0); MANUAL MICROSCOPIC REQUIRED? NO; REVIEW REQ? NO; TOTAL IRON BINDING CAPACITY 225 mcg/dl (250-450)
[2017-09-30 18:09] LABS: URINE PROTIEN/CREAT RATIO 0.7 (0-0.2); URINE TOTAL PROTEIN 79.6 mg/dl (0-11.9)
== END | disposition home or self-care (01) ==
LOC: C.LABPBG 11:47
PROVIDERS: ATTEND Internal Medicine Nephrology
DX: I10 Essential (primary) hypertension (principal); R80.9 Proteinuria, unspecified; N25.81 Secondary hyperparathyroidism of renal origin; D64.9 Anemia, unspecified; Z79.01 Long term (current) use of anticoagulants; Z51.81 Encounter for therapeutic drug level monitoring; I48.2 Chronic atrial fibrillation